=== PATIENT | male | born 1980 | race Caucasian/White ===

== ENCOUNTER 2024-10-30 08:31 | Emergency (ER) | payer MEDICAID, SELFPAY ==
[2024-10-30 08:32] VITALS: BMI 33.0
[2024-10-30 08:44] VITALS: BP 122/81; PULSE 86; RESP 19; TEMP 37.2; O2SAT 97
--- NOTE | 2024-10-30 08:53 | XR_ITS ---
Shoulder bilateral, 6 views Technique: Shoulder AP internal rotation, AP external rotation, Y view each shoulder total 6 views Exam date and time :October 30, 2024 0909 hours FINDINGS: Right shoulder demonstrates no fracture or dislocation IMPRESSION: Right shoulder examination no fracture or dislocation Examination: Shoulder,left, 3 views Technique: Shoulder AP internal rotation, AP external rotation, Y view shoulder, 3 views Exam date and time :October 30, 2024 0909 hrs. Indications: Patient fell today with into the left shoulder, right shoulder pain Findings: Probable overlap shadow distal clavicle Humerus scapula appear intact No shoulder dislocation Impression: No shoulder fracture or dislocation MTDD
--- NOTE | 2024-10-30 09:52 | EDNOTE_ITS ---
<Statement entered by Kenia Branch MD - 10/30/24 17:53> As co-signing physician, I was present and available for consult prn. I concur with the plan and care as documented by the midlevel provider. Upper Extremity Injury RME/HPI General Chief Complaint: Extremity Injury, Upper Stated Complaint: RIGHT SHOULDER INJURY YESTERDAY AT 1500 Time Seen by Provider: 10/30/24 08:32 Arrival date/time: 10/30/24 08:31 44-year-old male presents the emergency department stating that he hit his right elbow while skateboarding and a pain radiated to the right shoulder patient reports pain in the right shoulder Limitations: no limitations Related Data Previous Rx's ?Medication ?Instructions ?Recorded hydrocodone 5 mg-acetaminophen 325 1 tab PO BID PRN pain #10 tabs 07/29/24 mg tablet hydrocodone 5 mg-acetaminophen 325 1 tab PO BID PRN pain #10 tabs 07/29/24 mg tablet ibuprofen 800 mg tablet 800 mg PO TID PRN pain #30 tabs 07/29/24 buspirone 10 mg tablet 10 mg PO TID #90 tabs 08/26/24 fluoxetine 40 mg capsule 40 mg PO QAM #30 caps 08/26/24 ibuprofen 800 mg tablet 800 mg PO TID PRN pain #30 tabs 10/30/24 Allergies Allergy/AdvReac Type Severity Reaction Status Date / Time Penicillins Allergy Unknown Verified 10/30/24 08:34 Review of Systems Review of Systems Systems Reviewed: All systems reviewed, normal except as documented Constitutional Constitutional: Reports system reviewed and no additional complaints, except as documented, Denies fever(s) and Denies headache(s) Eyes Eyes: Reports system reviewed and no additional complaints, except as documented and Denies blurry vision ENT Ears, Nose, Mouth, and Throat: Reports system reviewed and no additional complaints, except as documented, Denies headache(s), Denies nasal congestion and Denies nasal discharge Cardiovascular Cardiovascular: Reports system reviewed and no additional complaints, except as documented, Denies chest pain and Denies dyspnea Respiratory Respiratory: Reports system reviewed and no additional complaints, except as documented, Denies chest congestion, Denies cough and Denies dyspnea Gastrointestinal Gastrointestinal: Reports system reviewed and no additional complaints, except as documented and Denies abdominal pain Musculoskeletal Musculoskeletal: Reports system reviewed and no additional complaints, except as documented, Reports arthralgias, Denies deformity, Denies joint swelling, Denies stiffness and Denies tingling Integumentary/Breasts Skin/Breast: Reports system reviewed and no additional complaints, except as documented and Denies rash Neurologic Neurologic: Reports system reviewed and no additional complaints, except as documented, Reports as per HPI, Denies headache(s) and Denies tingling Past Medical History Social History SMOKING STATUS: Current some day smoker ED Exam General Limitations: Present no limitations General appearance: Present alert and in no apparent distress Head Head exam: Present atraumatic Eye Eye exam: Present normal appearance, PERRL and EOMI ENT ENT exam: Present normal exam, normal oropharynx and mucous membranes moist Neck Neck exam: Present normal inspection, full ROM and trachea midline Chest Chest inspection: Present normal inspection and symmetric chest wall rise Respiratory Respiratory exam: Present normal lung sounds bilaterally Cardiovascular Cardiovascular exam: Present regular rate, normal rhythm and normal heart sounds Abdominal Exam Abdominal exam: Present soft and normal bowel sounds Extremities Exam Extremities exam: Present full ROM, tenderness and normal capillary refill; Absent joint swelling Back Exam Back exam: Present normal inspection and full ROM Neurological Exam Neurological exam: Present alert, oriented X3 and CN II-XII intact Psychiatric Psychiatric exam: Present normal affect and normal mood Skin Skin exam: Present warm, dry, intact and normal color Course Quality Measures none Orders Category Date Time Status XR shoulder BI 2V Stat Exams 10/30/24 09:35 Completed XR shoulder RT min 2V Stat Exams 10/30/24 08:53 Taken Vital Signs Vital signs: Vital Signs Temperature 99.0 F 10/30/24 08:44 Pulse Rate 86 10/30/24 08:44 Respiratory Rate 19 10/30/24 08:44 Blood Pressure 122/81 10/30/24 08:44 Pulse Oximetry (%) 97 10/30/24 08:44 Oxygen Delivery Method Room Air 10/30/24 08:44 O2 saturation 97% on room air within normal limits Extremity Injury MDM Narrative MDM Narrative:: 44-year-old male presents the emergency department stating that he hit his right elbow while skateboarding and a pain radiated to the right shoulder patient reports pain in the right shoulder X-ray of the right shoulder and elbow ordered Patient declined elbow x-ray X-ray of the shoulder does not show an acute fracture or dislocation Patient discharged home in no distress to follow-up with primary care doctor in the next 24 to 48 hours and for any worsening symptoms to return to the ER immediately Patient data External records reviewed:: [facility] previous records Clinical information provided by:: patient Social determinants that could affect healthcare access:: none Patient has the following chronic illnesses:: See history How is presenting disease/condition affected by chronic disease/condition?: uneffected by Evaluation data The following diagnostics were reviewed and interpreted by me:: radiology exam(s) Lab and/or radiology exams considered but not ordered:: Radiology obtain Interpretation Summary: Reviewed by me Medications / Prescriptions Medications or Prescriptions considered but not ordered:: Given Medication administrations:: Given Consultations Consultation(s) initiated? (list below): No Diagnosis Upper Extremity Injury Differential Diagnosis: other (Elbow sprain, elbow fracture, shoulder sprain, shoulder fracture) Most likely diagnosis given after review of the tests above:: Shoulder sprain Admission Indicated Admission indicated?: not indicated Admission Request Was there a request for admission?: No Disposition Plan Disposition Plan: Discharge Discharge Attestation Discharge Attestation: The patient and all family members were given an opportunity to ask questions and understood the discharge instructions. Discharge instructions specifically effects, indications for sooner follow up or return to the emergency department, and the expected course of current diagnosis. Patient condition: Stable Discharge Plan Plan Patient Disposition: HOME (Self Care) Disposition Comment: Stable Prescriptions/Referrals Prescriptions/Med Rec: New ibuprofen 800 mg tablet 800 mg PO TID PRN (Reason: pain) Qty: 30 0RF No Action hydrocodone-acetaminophen 5-325 mg tablet 1 tab PO BID MDD 2 tabs PRN (Reason: pain) Qty: 10 0RF ibuprofen 800 mg tablet 800 mg PO TID PRN (Reason: pain) Qty: 30 0RF hydrocodone-acetaminophen 5-325 mg tablet 1 tab PO BID MDD 10 PRN (Reason: pain) Qty: 10 0RF fluoxetine 40 mg capsule 40 mg PO QAM Qty: 30 1RF buspirone 10 mg tablet 10 mg PO TID Qty: 90 3RF Problem List Clinical Impression: Pain in right shoulder Patient/Caregiver Discharge Instructions Education Materials: ED Arthralgia Additional Instructions: Please follow up with your primary care doctor in the next 24-48hrs for any worsening symptoms return here immediately If your symptoms persist or worsen you may need an MRI for further evaluation Print Language: Yi Stand Alone Forms: [employer]., Patient Portal Info Letter PA/MACHINE COIL ASSEMBLER Supervising Physician PA/MACHINE COIL ASSEMBLER Supervising Physician: Dr. Branch
== END 2024-10-30 10:00 | disposition home or self-care (01) ==
LOC: SERX 10:47
PROVIDERS: Emergency Provider Emergency Medicine
DX: S49.91XA Unspecified injury of right shoulder and upper arm, initial encounter (principal); M25.512 Pain in left shoulder; Y93.51 Activity, roller skating (inline) and skateboarding
CPT/HCPCS: 73030; 99283

== ENCOUNTER 2024-12-07 18:36 | Emergency (ER) | payer MEDICAID, SELFPAY ==
[2024-12-07 18:38] VITALS: BP 118/79; PULSE 89; RESP 22; TEMP 36.3; O2SAT 99
--- NOTE | 2024-12-07 18:42 | XR_ITS ---
EXAMINATION: Ankle, right 3 views . Technique: Ankle AP, oblique, lateral 3 views Date and time of exam: December 17, 2024 1911 hrs. Indications: Patient fell today with injury to the ankle, ankle pain. Findings: Acute severely comminuted fracture distal tibial shaft, one shaft width offset of the main fracture fragments on the AP view Acute fracture distal fibular shaft, one shaft width offset with overriding No ankle dislocation Impression: Acute comminuted fractures distal tibia and distal fibular shaft
--- NOTE | 2024-12-07 18:42 | XR_ITS ---
Examination: Tibia-Fibula, right , 2 views Technique: Tibia-fibula AP lateral 2 views Date and time of exam: November 20248 hrs. Indications: Skateboarding accident to the lower leg today, lower leg pain. Findings: Acute comminuted fracture distal tibial shaft, on the AP view one shaft width lateral offset of the distal main fracture fragment Acute fracture distal fibular shaft, one shaft width offset and overriding Also fracture proximal fibular shaft and neck Impression: Fractures as above, including acute comminuted fracture distal tibial shaft with significant displacement
--- NOTE | 2024-12-07 18:43 | PD.EDADULT ---
ED General RME/HPI General Chief complaint: Ankle/Foot Injury Stated complaint: ANKLE FRACTURE Time Seen by Provider: 12/07/24 18:39 Arrival date/time: 12/07/24 18:36 RME / HPI RME / HPI narrative: 44-year-old male patient with significant history of diabetes mellitus, was brought in by EMS for evaluation regarding right ankle deformity. Patient fell off his skateboard, resulting into deformity to the right ankle, severity moderate. Patient denies any other injury. Denies any LOC denies any headache denies any neck pain chest pain or back pain. Patient was given fentanyl en route to the emergency room. Related Data Previous Rx's ?Medication ?Instructions ?Recorded hydrocodone 5 mg-acetaminophen 325 1 tab PO BID PRN pain #10 tabs 07/29/24 mg tablet hydrocodone 5 mg-acetaminophen 325 1 tab PO BID PRN pain #10 tabs 07/29/24 mg tablet ibuprofen 800 mg tablet 800 mg PO TID PRN pain #30 tabs 07/29/24 buspirone 10 mg tablet 10 mg PO TID #90 tabs 08/26/24 fluoxetine 40 mg capsule 40 mg PO QAM #30 caps 08/26/24 ibuprofen 800 mg tablet 800 mg PO TID PRN pain #30 tabs 10/30/24 acetaminophen 300 mg-codeine 30 mg 1 tab PO TID PRN pain #20 tabs 12/07/24 tablet ibuprofen 800 mg tablet 800 mg PO TID PRN pain #30 tabs 12/07/24 Allergies Allergy/AdvReac Type Severity Reaction Status Date / Time Penicillins Allergy Unknown Verified 12/07/24 19:33 Review of Systems Review of Systems Narrative Review of Systems: Review of system reviewed and within normal limits except mentioned in HPI ED Exam Narrative Physical exam: VITAL SIGNS: Reviewed. GENERAL APPEARANCE: Alert and interactive, follows commands, no acute distress, HEAD AND FACE: Non-traumatic. ENT: PERRL, pink conjunctivitis, eyelid no trauma, Mucous membrane moist. NECK: Supple, nontender, no nuchal rigidity. CHEST: No tenderness, no crepitus, no paradoxical movement, no retractions. LUNGS: Clear, well ventilated, symmetric, no rales, no wheezing, no ronchi, no stridor, good breath sounds bilaterally. HEART: Regular rate, regular rhythm, no murmur, no gallops. ABDOMEN: Soft, positive bowel sounds, nondistended, no guarding, nontender, no rebound, no masses, RECTAL: Deferred. GENITAL: Deferred. NEUROLOGICAL: Gross motor function intact sensory function intact, Appropriate for age. MUSCULOSKELETAL: low back nontender, full range of motion. EXTREMITIES: Right ankle tenderness, mild swelling, with crepitus, no skin breakdown noted, and limitation range of motion. Distal neurovascular status intact. SKIN: Color pink, dry, no rash, no lacerations, no abrasions, no contusions. LYMPHATICS: Deferred. Course Quality Measures none Orders Category Date Time Status Crutches .NOW Care 12/07/24 19:42 Active XR ankle comp RT min 3V Stat Exams 12/07/24 18:42 Taken XR tibia fibula RT 2V Stat Exams 12/07/24 18:42 Taken HYDROcodone/APAP 10/325 [[place] 10/325] Med 12/07/24 20:28 Discontinued 1 tab PO X1 ONE Morphine Inj Med 12/07/24 18:42 Discontinued 4 mg IVP X1 ONE Vital Signs Vital signs: Vital Signs Temperature 97.4 F 12/07/24 18:38 Pulse Rate 89 12/07/24 18:38 Respiratory Rate 22 H 12/07/24 18:38 Blood Pressure 118/79 12/07/24 18:38 Pulse Oximetry (%) 99 12/07/24 18:38 Oxygen Delivery Method Room Air 12/07/24 18:38 [facility] Patient data External records reviewed:: None Clinical information provided by:: patient Social determinants that could affect healthcare access:: none Patient has the following chronic illnesses:: Diabetes mellitus How is presenting disease/condition affected by chronic disease/condition?: uneffected by Evaluation data The following diagnostics were reviewed and interpreted by me:: radiology exam(s) Lab and/or radiology exams considered but not ordered:: None Interpretation Summary: X-ray of the right lower extremity showed comminuted fracture of the distal tibia and fibula and proximal fibula Medications Medications considered but not ordered:: None Medication administrations:: Medication Administration History Discontinued Medications Hydrocodone Bitart/Acetaminophen (Hydrocodone/[place] 10/325 Tab) 1 tab PO X1 ONE Stop: 12/07/24 20:29 Morphine Sulfate (Morphine Sulf Inj 10 Mg/Ml Vial) 4 mg IVP X1 ONE Stop: 12/07/24 18:43 Last Admin: 12/07/24 19:26 Dose: 4 mg Documented By: TAMI Morphine and [place] Consultations Consultation(s) initiated? (list below): Yes Consultation #1 (Physician, Specialty, Details): I consulted Dr. Rutledge, orthopedic surgeon on-call, and told me that patient can go home on a splint and follow-up in his clinic this coming Monday at 3 PM. Plan of care discussed with the patient and told him to follow-up with the clinic of orthopedic surgeon patient agrees with the plan. Diagnosis Differential Diagnosis ED Complaint MDM: Distal tibia-fibula fracture, ankle dislocation knee fracture Most likely diagnosis given after review of the tests above:: Close distal tibial fibular fracture right Admission Indicated Admission indicated?: not indicated Explain why admission is indicated or not indicated:: Stable Admission Request Was there a request for admission?: No Disposition Plan Disposition Plan: Discharge Discharge Attestation Discharge Attestation: The patient was given an opportunity to ask questions and understood the discharge instructions. Discharge instructions specifically effects, indications for sooner follow up or return to the emergency department, and the expected course of current diagnosis. Patient condition: Stable Medical Decision Making MDM Narrative MDM Narrative: 44-year-old male patient with significant history of diabetes mellitus, was brought in by EMS for evaluation regarding right ankle deformity. Patient fell off his skateboard, resulting into deformity to the right ankle, severity moderate. Patient denies any other injury. Denies any LOC denies any headache denies any neck pain chest pain or back pain. Patient was given fentanyl en route to the emergency room. Differential Diagnosis Differential Diagnosis: Distal tibia-fibula fracture, ankle dislocation knee fracture Discharge Plan Plan Patient Disposition: HOME (Self Care) Disposition Comment: stable Prescriptions/Referrals Prescriptions/Med Rec: New ibuprofen 800 mg tablet 800 mg PO TID PRN (Reason: pain) Qty: 30 0RF acetaminophen-codeine 300-30 mg tablet 1 tab PO TID PRN (Reason: pain) Qty: 20 0RF No Action hydrocodone-acetaminophen 5-325 mg tablet 1 tab PO BID MDD 2 tabs PRN (Reason: pain) Qty: 10 0RF ibuprofen 800 mg tablet 800 mg PO TID PRN (Reason: pain) Qty: 30 0RF hydrocodone-acetaminophen 5-325 mg tablet 1 tab PO BID MDD 10 PRN (Reason: pain) Qty: 10 0RF fluoxetine 40 mg capsule 40 mg PO QAM Qty: 30 1RF buspirone 10 mg tablet 10 mg PO TID Qty: 90 3RF ibuprofen 800 mg tablet 800 mg PO TID PRN (Reason: pain) Qty: 30 0RF Referrals: Brant Rose MD [Referring Provider] - In 1 week (Follow-up with orthopedic surgeon, Dr. Rutledge, this Monday, at 3 PM) Problem List Clinical Impression: Fracture of tibia and fibula Patient/Caregiver Discharge Instructions Discharge Activity: activity as tolerated Education Materials: ED Fracture, Lower Extremity Additional Instructions: Follow-up with orthopedic surgeon, Dr. Rutledge, in the clinic 3 PM this coming Monday Elevate your legs as needed None weightbearing the right lower extremity Do not remove your splint Take medication as prescribed Print Language: Sami Stand Alone Forms: Carmela Award Info., Patient Portal Info Letter PA/ROPE TIER Supervising Physician PA/ROPE TIER Supervising Physician: Md Mt
[2024-12-07] MEDS: MORPHINE SULF INJ 10 MG/ML VIAL 4 MG IVP (19:26)
[2024-12-07 19:34] VITALS: BMI 33.0
[2024-12-07 19:38] VITALS: BP 138/83; PULSE 100; RESP 20; TEMP 36.7; O2SAT 100
[2024-12-07] MEDS: HYDROcodone/APAP 10/325 TAB PO (20:40)
--- NOTE | 2024-12-07 20:45 | PC.NURSE ---
pt teaching done with pt on use fo crutches. demonstration and demonstration back. pt verbalizes understanding. pt educated on care of splint. educated on how to check for circulation and what to do if comprimized. Also spoke with pt about the importance of seeing primary and thus orthopedic surgeon YASMINE. pt vebalizes understanding.
== END 2024-12-07 21:04 | disposition home or self-care (01) ==
PROVIDERS: Emergency Provider Emergency Medicine
DX: S82.831A Other fracture of upper and lower end of right fibula, initial encounter for closed fracture (principal); S82.301A Unspecified fracture of lower end of right tibia, initial encounter for closed fracture; E11.9 Type 2 diabetes mellitus without complications; V00.131A Fall from skateboard, initial encounter; Y93.51 Activity, roller skating (inline) and skateboarding
CPT/HCPCS: 29515; 73590; 73610; 96374; 99284; J2270; A9270

== ENCOUNTER 2024-12-08 03:19 | Emergency (ER) | payer MEDICAID, SELFPAY ==
[2024-12-08 03:23] VITALS: BP 147/86; PULSE 105; RESP 18; TEMP 36.9; O2SAT 97
--- NOTE | 2024-12-08 03:28 | PD.EDADULT ---
ED General RME/HPI General Chief complaint: General Adult/Misc Complain Stated complaint: RIGHT LEG PAIN, RIGHT SHOULDER PAIN Time Seen by Provider: 12/08/24 03:28 Source: patient Arrival date/time: 12/08/24 03:19 Mode of arrival: ambulatory Limitations: no limitations RME / HPI RME / HPI narrative: Dr. Amor?s Main ED Evaluation: 44-year-old male who presents to the emergency department requesting pain medication and additional assistance related to what he describes as a personal crisis. He was just here today and treated for right proximal fibula fracture with outpatient followup on 12/09/[address] De Oliveira. He explains that his current situation is complicated including being unhoused and lacking reliable transportation, which have impacted his ability to access consistent medical care. The patient does not report any new or worsening medical complaints at this time. He denies symptoms such as fever, chills, shortness of breath, chest pain, nausea, vomiting, abdominal pain, or neurological changes. He also denies any acute trauma or injury. Related Data Previous Rx's ?Medication ?Instructions ?Recorded hydrocodone 5 mg-acetaminophen 325 1 tab PO BID PRN pain #10 tabs 07/29/24 mg tablet hydrocodone 5 mg-acetaminophen 325 1 tab PO BID PRN pain #10 tabs 07/29/24 mg tablet ibuprofen 800 mg tablet 800 mg PO TID PRN pain #30 tabs 07/29/24 buspirone 10 mg tablet 10 mg PO TID #90 tabs 08/26/24 fluoxetine 40 mg capsule 40 mg PO QAM #30 caps 08/26/24 ibuprofen 800 mg tablet 800 mg PO TID PRN pain #30 tabs 10/30/24 acetaminophen 300 mg-codeine 30 mg 1 tab PO TID PRN pain #20 tabs 12/07/24 tablet ibuprofen 800 mg tablet 800 mg PO TID PRN pain #30 tabs 12/07/24 Allergies Allergy/AdvReac Type Severity Reaction Status Date / Time Penicillins Allergy Unknown Verified 12/07/24 19:33 Review of Systems Review of Systems Systems Reviewed: All systems reviewed, normal except as documented Past Medical History Social History SMOKING STATUS: Current every day smoker ED Exam Narrative Physical exam: GENERAL APPEARANCE: alert and oriented x 4, well-developed, well-nourished, no acute distress VITALS: All vitals were reviewed and the pulse ox is 97% on room air, which is normal according to my interpretation. HEENT: normocephalic, atraumatic NECK: supple LUNGS: no respiratory distress, normal effort HEART: good peripheral perfusion ABDOMEN: non distended EXTREMITIES: atraumatic NEUROLOGIC: awake; alert and oriented x4; cranial nerves II-XII grossly intact. Distal NV status intact. Splint and michelle wrap applied to right lower leg. PSYCHIATRIC: appropriate mood and affect SKIN: warm, dry, normal color; no rashes General Limitations: Present no limitations Course Quality Measures none Vital Signs Vital signs: Vital Signs Temperature 98.5 F 12/08/24 03:23 Pulse Rate 105 H 12/08/24 03:23 Respiratory Rate 18 12/08/24 03:23 Blood Pressure 147/86 H 12/08/24 03:23 Pulse Oximetry (%) 97 12/08/24 03:23 Oxygen Delivery Method Room Air 12/08/24 03:23 [facility] Patient data External records reviewed:: [facility] previous records Clinical information provided by:: patient Social determinants that could affect healthcare access:: none Patient has the following chronic illnesses:: see PMH How is presenting disease/condition affected by chronic disease/condition?: uneffected by Evaluation data The following diagnostics were reviewed and interpreted by me:: EKG tracing(s) Lab and/or radiology exams considered but not ordered:: n/a Interpretation Summary: See radiology data before. Medications Medications considered but not ordered:: n/a Medication administrations:: n/a Consultations Consultation(s) initiated? (list below): No Diagnosis Differential Diagnosis ED Complaint MDM: Fracture pain, Dislocation, Contustion Most likely diagnosis given after review of the tests above:: Fracture of tibia and fibula Admission Indicated Admission indicated?: not indicated Explain why admission is indicated or not indicated:: No significant findings Admission Request Was there a request for admission?: No Disposition Plan Disposition Plan: Discharge Discharge Attestation Discharge Attestation: The patient and all family members were given an opportunity to ask questions and understood the discharge instructions. Discharge instructions specifically effects, indications for sooner follow up or return to the emergency department, and the expected course of current diagnosis. Patient condition: Stable Medical Decision Making MDM Narrative MDM Narrative: Scribe Attestation: I, Sydney Jennifer, am scribing for and in the presence of Dr. Amor. Provider Notation: Although this document has been carefully reviewed, there may still be some phonetic and other typographical errors. These errors are purely grammatical due to imperfections in the software program and should not be construed in any way to compromise the substance of the patient's medical care during this visit. Differential Diagnosis Differential Diagnosis: Fracture pain, Dislocation, Contustion Medical Records Medical records reviewed: Yes I reviewed the patient's medical records. Radiology Data Radiology results reviewed: Yes I reviewed the patient's radiology results. Radiology results narrative: Examination: Tibia-Fibula, right , 2 views Technique: Tibia-fibula AP lateral 2 views Date and time of exam: November [id number] hrs. Indications: Skateboarding accident to the lower leg today, lower leg pain. Findings: Acute comminuted fracture distal tibial shaft, on the AP view one shaft width lateral offset of the distal main fracture fragment Acute fracture distal fibular shaft, one shaft width offset and overriding Also fracture proximal fibular shaft and neck Impression: Fractures as above, including acute comminuted fracture distal tibial shaft with significant displacement Dictated By: Erasmo Hairston MD Discharge Plan Plan Patient Disposition: HOME (Self Care) Disposition Comment: Stable for discharge Patient condition on transfer: Stable Prescriptions/Referrals Prescriptions/Med Rec: No Action hydrocodone-acetaminophen 5-325 mg tablet 1 tab PO BID MDD 2 tabs PRN (Reason: pain) Qty: 10 0RF ibuprofen 800 mg tablet 800 mg PO TID PRN (Reason: pain) Qty: 30 0RF hydrocodone-acetaminophen 5-325 mg tablet 1 tab PO BID MDD 10 PRN (Reason: pain) Qty: 10 0RF fluoxetine 40 mg capsule 40 mg PO QAM Qty: 30 1RF buspirone 10 mg tablet 10 mg PO TID Qty: 90 3RF ibuprofen 800 mg tablet 800 mg PO TID PRN (Reason: pain) Qty: 30 0RF ibuprofen 800 mg tablet 800 mg PO TID PRN (Reason: pain) Qty: 30 0RF acetaminophen-codeine 300-30 mg tablet 1 tab PO TID PRN (Reason: pain) Qty: 20 0RF Problem List Clinical Impression: Fracture of tibia and fibula Patient/Caregiver Discharge Instructions Discharge Activity: activity as tolerated Education Materials: ED Fracture, Lower Extremity Additional Instructions: It is very important that you keep your appointment with Dr. De Oliveira on Monday at 3 PM. Please go to your pharmacy and fill the prescription for pain medicine that was written for you. If you have any worsening you can come back to the emergency department anytime and we will help Print Language: Citizen Of [place] Stand Alone Forms: Carmela Award Info., Patient Portal Info Letter
[2024-12-08] MEDS: MORPHINE SULF INJ 10 MG/ML VIAL 5 MG IM (03:51)
[2024-12-08 04:23] VITALS: RESP 18
== END 2024-12-08 04:33 | disposition home or self-care (01) ==
LOC: SERX 04:30
PROVIDERS: Emergency Provider Emergency Medicine
DX: S82.831A Other fracture of upper and lower end of right fibula, initial encounter for closed fracture (principal); Y93.51 Activity, roller skating (inline) and skateboarding; Z59.00 Homelessness unspecified
CPT/HCPCS: 96372; 99283; J2270

== ENCOUNTER 2024-12-08 07:22 | Emergency (ER) | payer MEDICAID, SELFPAY ==
[2024-12-08 07:24] VITALS: BMI 33.0
[2024-12-08 07:31] VITALS: BP 129/68; PULSE 85; RESP 18; TEMP 36.7; O2SAT 100
--- NOTE | 2024-12-08 07:40 | EDNOTE_ITS ---
<Statement entered by Kenia Branch MD - 12/19/24 19:26> As co-signing physician, I was present and available for consult prn. I concur with the plan and care as documented by the midlevel provider. Lower Extremity Injury RME/HPI General Chief Complaint: Ankle/Foot Injury Stated Complaint: NEEDS PAIN MED AND PLACE TO GO D/T FX ANKLE Time Seen by Provider: 12/08/24 07:29 Arrival date/time: 12/08/24 07:22 This is a 44-year-old male who presents to the emergency department requesting pain medication and additional assistance because he is homeless. Patient was offered a ride to the homeless correction but states he did not want to go there because they kicked everyone out at 8 AM in the morning. He he was just seen this morning for the same complaint and treated for right proximal fibula fracture with outpatient followup on 12/09/[address] De Oliveira. He explains that his current situation is complicated including being unhoused and lacking reliable transportation, which have impacted his ability to access consistent medical care. Patient states that he has nowhere to go. The patient does not report any new or worsening medical complaints at this time. He denies symptoms such as fever, chills, shortness of breath, chest pain, nausea, vomiting, abdominal pain, or neurological changes. He also denies any new acute trauma or injury. Related Data Home Medications ?Medication ?Instructions ?Recorded ?Confirmed atorvastatin 40 mg tablet 40 mg PO DAILY 12/13/2411/30 fenofibrate 54 mg tablet 54 mg PO DAILY 12/13/2411/30 hydrocodone 5 mg-acetaminophen 325 1 tab PO Q4H PRN pa in 12/13/24 12/13/24 mg tablet trazodone 50 mg tablet 50 mg PO .bedtime PRN insomn ia 12/13/24 12/13/24 Previous Rx's ?Medication ?Instructions ?Recorded buspirone 10 mg tablet 10 mg PO TID #90 tabs fluoxetine 40 mg capsule 40 mg PO QAM #30 caps ibuprofen 800 mg tablet 800 mg PO TID PRN pain #30 t abs 10/30/24 Allergies Allergy/AdvReac Type Severity Reaction Status Date / Time Penicillins Allergy Unknown Verified 12/13/24 07:56 Review of Systems Review of Systems Systems Reviewed: All systems reviewed, normal except as documented Past Medical History Social History SMOKING STATUS: Current every day smoker ED Exam Narrative Physical exam: GENERAL APPEARANCE: alert and oriented x 4, well-developed, well-nourished, no acute distress VITALS: All vitals were reviewed HEENT: normocephalic, atraumatic NECK: supple LUNGS: no respiratory distress, normal effort, breathing even and unlabored HEART: good peripheral perfusion ABDOMEN: non distended EXTREMITIES: atraumatic NEUROLOGIC: awake; alert and oriented x4; cranial nerves II-XII grossly intact. Distal NV status intact. Splint and michelle wrap applied to right lower leg. leg warm to touch, splint loosen for comfort, foot cap refill less than 2 seconds PSYCHIATRIC: appropriate mood and affect SKIN: warm, dry, normal color; no rashes Course Quality Measures none Orders Category Date Time Status Consult Coverstitch Elastic Attacher NOW Care 12/08/24 07:54 Completed HYDROcodone*/APAP 5/325 [Claridge 5/325] Med 12/08/24 07:53 Discontinued 2 tab PO X1 ONE Ketorolac Inj [Toradol Inj] Med 12/08/24 07:53 Discontinued 60 mg IM X1 ONE Metoclopramide Inj [Reglan Inj] Med 12/08/24 07:53 Discontinued 10 mg IM X1 ONE Ondansetron Odt [Zofran Odt] Med 12/08/24 07:56 Discontinued 4 mg PO X1 ONE Vital Signs Vital signs: Vital Signs Temperature 98.0 F 12/08/24 07:31 Pulse Rate 85 12/08/24 07:31 Respiratory Rate 18 12/08/24 07:31 Blood Pressure 129/68 12/08/24 07:31 Pulse Oximetry (%) 100 12/08/24 07:31 Oxygen Delivery Method Room Air 12/08/24 07:31 Extremity Injury, Lower MDM Narrative MDM Narrative:: Patient given Toradol and Claridge 2 tablets for pain. Patient given Reglan for nausea. Pain is improved. Patient calling someone to grain picker his prescriptions. Patient told to come back to the emergency room if symptoms change or worsen. Patient verbalizes that he will follow-up with Dr. Mijares in doctor's office. Patient comfortable with plan of care. Patient data External records reviewed:: [facility] previous records Clinical information provided by:: patient Social determinants that could affect healthcare access:: housing Patient has the following chronic illnesses:: see hpi How is presenting disease/condition affected by chronic disease/condition?: no chronic disease Evaluation data The following diagnostics were reviewed and interpreted by me:: other (specify) (previous diagnosed with fracture ) Lab and/or radiology exams considered but not ordered:: none Interpretation Summary: n/a Medications / Prescriptions Medications or Prescriptions considered but not ordered:: none Medication administrations:: Medication Administration History Discontinued Medications Hydrocodone Bitart/Acetaminophen (Hydrocodone/Apap 5/325 Tablet) 2 tab PO X1 ONE Stop: 12/08/24 07:54 Last Admin: 12/08/24 08:01 Dose: 2 tab Documented By: Ketorolac Tromethamine (Ketorolac Inj 60 Mg/2 Ml Vial) 60 mg IM X1 ONE Stop: 12/08/24 07:54 Last Admin: 12/08/24 08:02 Dose: 60 mg Documented By: Metoclopramide HCl (Metoclopramide Inj 5 Mg/Ml Vial 2 Ml) 10 mg IM X1 ONE; Protocol Stop: 12/08/24 07:54 Last Admin: 12/08/24 07:58 Dose: Not Given Documented By: Non-Admin Reason: Cancelled by Provider Ondansetron HCl (Ondansetron Odt 4 Mg Tabrap) 4 mg PO X1 ONE; Protocol Stop: 12/08/24 07:57 Last Admin: 12/08/24 08:01 Dose: 4 mg Documented By: see note Consultations Consultation(s) initiated? (list below): No Diagnosis Most likely diagnosis given after review of the tests above:: fracture tibia and fibula Admission Indicated Admission indicated?: not indicated Admission Request Was there a request for admission?: No Disposition Plan Disposition Plan: Discharge Discharge Attestation Discharge Attestation: The patient and all family members were given an opportunity to ask questions and understood the discharge instructions. Discharge instructions specifically effects, indications for sooner follow up or return to the emergency department, and the expected course of current diagnosis. Patient condition: Stable Discharge Plan Plan Patient Disposition: HOME (Self Care) Patient condition on transfer: Stable Prescriptions/Referrals Prescriptions/Med Rec: No Action fluoxetine 40 mg capsule 40 mg PO QAM Qty: 30 1RF buspirone 10 mg tablet 10 mg PO TID Qty: 90 3RF ibuprofen 800 mg tablet 800 mg PO TID PRN (Reason: pain) Qty: 30 0RF hydrocodone-acetaminophen 5-325 mg tablet 1 tab PO Q4H PRN (Reason: pain) trazodone 50 mg tablet 50 mg PO .bedtime PRN (Reason: insomnia) fenofibrate 54 mg tablet 54 mg PO DAILY Patient Comments: TAKE 1 TABLET BY MOUTH EVERY DAY WITH FOOD FOR 30 DAYS atorvastatin 40 mg tablet 40 mg PO DAILY Patient Comments: TAKE 1 TABLET BY MOUTH EVERY DAY Problem List Clinical Impression: Fracture of tibia and fibula Patient/Caregiver Discharge Instructions Discharge Activity: activity as tolerated Education Materials: ED Fracture, Lower Extremity, ED RICE Additional Instructions: It is very important that you keep your appointment with Dr. De Oliveira on 12/09/24 at 3 PM. Please go to your pharmacy and fill the prescription for pain medicine that was written for you previously. If symptoms change or worsen you can come back to the emergency department. Print Language: Nigerien Stand Alone Forms: Carmela Award Info., Patient Portal Info Letter PA/INSPECTOR AIR CARRIER Supervising Physician ABBEY/INSPECTOR AIR CARRIER Supervising Physician: chris
[2024-12-08] MEDS: ONDANSETRON ODT 4 MG TABRAP PO (08:01)
[2024-12-08] MEDS: HYDROcodone/APAP 5/325 TABLET 2 TAB PO (08:01)
[2024-12-08] MEDS: KETOROLAC INJ 60 MG/2 ML VIAL IM (08:02)
--- NOTE | 2024-12-08 08:30 | PC.NURSE ---
PT IN LOBBY WAITING FOR TRAFFIC WAREHOUSE SUPERVISOR. PT YELLING AND HYPERVENTILATING AND C/O PAIN WILL TALK WITH PROVIDER
--- NOTE | 2024-12-08 08:45 | PC.NURSE ---
GIVEN WATER PER REQUEST
--- NOTE | 2024-12-08 09:14 | PC.NURSE ---
COMPOSITION WEATHERBOARD APPLIER CAME TO LOBBY TO TALK WITH PT
--- NOTE | 2024-12-08 09:27 | PC.CC ---
Zo MEJIAS was consulted by coordinator mining products Sara for patient that is in need of Ship Self Defense System Mk1 Operator. Zo MEJIAS made [id number] contact with patient. ASW introduced self, role, and reason for visit. Patient appeared alert and oriented to self, location, and situation.?Patient reports he has no where to go and is [facility] but does not have confirmation that he has a bed and is waiting for a call back from them. Patient provided consent for ASW to make contact with his ex- Erika Coleman . ASW made telephone contact with the patient's ex- who reports she will be making contact with patient's sister who is in [place]. She requested that ASW inform patient to connect his phone to make contact with him as she is going to try and put him in a hotel/motel with the assistance of his sister. Erika requested patient be provided with bus passes as she will only be able to transport patient to motel is a room is booked for him. ASW made contact with the patient and provided update information from his ex- Erika. ASW provided update to charger operator helper Sara.
--- NOTE | 2024-12-08 10:35 | PC.NURSE ---
PT NOW HAS MALE VISITOR THAT CAME TO TRIAGE DESK TO SAY I'VE BEEN TALKING TO HIS MARINE EXTENSION AGENT ABOUT A SENIOR CARE. INFORMED VISITOR THAT NURSE WILL CALL SCHOOL AGE PROGRAM TEACHER TO COME TALK WITH HIM.
--- NOTE | 2024-12-08 11:02 | PC.CC ---
ASW, was contatced by manager quality systems Sara regarding patient wanting to speak to social work therapist regarding SNF placement. ASW informed patient that this is currently not an option as ASW cannot just check patient in at a SNF and there is a process. Patient stated he is waiting for his ex- to make contact with him after yazdanism. ASW once again reminded patient that there are not hotel/motel vouchers available. Patient stated he understood and is just waiting for the text. ASW to remain available.
--- NOTE | 2024-12-08 12:17 | PC.NURSE ---
SEEN GETTING INTO A CAR AND LEAVING
== END 2024-12-08 12:18 | disposition home or self-care (01) ==
LOC: SERX 08:19
PROVIDERS: Emergency Provider Emergency Medicine; PCP Family Medicine
DX: S82.831A Other fracture of upper and lower end of right fibula, initial encounter for closed fracture (principal); X58.XXXA Exposure to other specified factors, initial encounter; Z59.00 Homelessness unspecified
CPT/HCPCS: 96372; 99283; J1885; Q0162; A9270

== ENCOUNTER 2024-12-09 09:26 | Emergency (ER) | payer MEDICAID, SELFPAY ==
[2024-12-09 09:32] VITALS: BP 129/77; PULSE 85; RESP 16; TEMP 36.4; O2SAT 97; BMI 32.1
--- NOTE | 2024-12-09 10:20 | PC.NURSE ---
PATIENT CAME IN VIA EMS FOR WHAT HE INITIALLY SAID DEPRESSION SI. APON ARRIVAL PT STATES HE HAS AN APPOINTMENT TODAY WITH DR. KASPER AT 3PM BUT WHEN HE CALLED HIS RIDE THIS AM THE PERSON DIDN'T SALES REPRESENTATIVE ELECTRIC SERVICE SO PT THOUGHT THEY HAD BLOCKED HIM. PT STATED HE DOES NOT HAVE A RIDE SO HE FELT THAT IF HE CALLED 911 AND SAID HE WAS SI WE WILL HELP HIM. WHEN PT WAS SEEN YESTERDAY HE WAS GIVEN 2 BUS VOUCHERS AND ARRANGEMENTS WERE MADE FOR HIM TO STAY IN A HOTEL FOR THE NIGHT. PT DENIES SI BUT STATES HE DOES WANT MENTAL HEALTH SERVICES BUT TODAY HE JUST WANTS HELP WITH HIS LEG. CONSUMER INSIGHT MANAGER AWARE.
--- NOTE | 2024-12-09 11:24 | EDNOTE_ITS ---
Lower Extremity Injury RME/HPI General Chief Complaint: Depression Stated Complaint: NEEDS RIDE TO ORTHO [facility] AT 3 AND MH Time Seen by Provider: 12/09/24 11:23 Arrival date/time: 12/09/24 09:26 44-year-old male with psychiatric history presents to the emergency department today via EMS stating he is essentially for a ride to his Ortho appointment here in town at 3:00. Patient reports no acute medical complaints other than mild pain to his right foot which she is going to an Ortho appointment for today for a fracture Limitations: no limitations Related Data Home Medications ?Medication ?Instructions ?Recorded ?Confirmed atorvastatin 40 mg tablet 40 mg PO DAILY 12/13/2411/30 fenofibrate 54 mg tablet 54 mg PO DAILY 12/13/2411/30 hydrocodone 5 mg-acetaminophen 325 1 tab PO Q4H PRN pa in 12/13/24 12/13/24 mg tablet trazodone 50 mg tablet 50 mg PO .bedtime PRN insomn ia 12/13/24 12/13/24 Previous Rx's ?Medication ?Instructions ?Recorded buspirone 10 mg tablet 10 mg PO TID #90 tabs fluoxetine 40 mg capsule 40 mg PO QAM #30 caps ibuprofen 800 mg tablet 800 mg PO TID PRN pain #30 t abs 10/30/24 Allergies Allergy/AdvReac Type Severity Reaction Status Date / Time Penicillins Allergy Unknown Verified 12/13/24 07:56 Review of Systems Review of Systems Systems Reviewed: All systems reviewed, normal except as documented Constitutional Constitutional: Reports system reviewed and no additional complaints, except as documented, Denies fever(s) and Denies headache(s) Eyes Eyes: Reports system reviewed and no additional complaints, except as documented and Denies blurry vision ENT Ears, Nose, Mouth, and Throat: Reports system reviewed and no additional complaints, except as documented, Denies headache(s), Denies nasal congestion and Denies nasal discharge Cardiovascular Cardiovascular: Reports system reviewed and no additional complaints, except as documented, Denies chest pain and Denies dyspnea Respiratory Respiratory: Reports system reviewed and no additional complaints, except as documented, Denies chest congestion, Denies cough and Denies dyspnea Gastrointestinal Gastrointestinal: Reports system reviewed and no additional complaints, except as documented and Denies abdominal pain Musculoskeletal Musculoskeletal: Reports system reviewed and no additional complaints, except as documented, Reports abnormal gait, Reports arthralgias, Denies deformity and Reports other (Back pain) Integumentary/Breasts Skin/Breast: Reports system reviewed and no additional complaints, except as documented and Denies rash Neurologic Neurologic: Reports system reviewed and no additional complaints, except as documented, Reports as per HPI, Reports abnormal gait and Denies headache(s) Psychiatric Psychiatric: Reports system reviewed and no additional complaints, except as documented, Denies homicidal ideation and Denies suicidal ideation Past Medical History Past Medical History NEUROLOGIC: Positive Migraine; Negative Neurological Disorders or Seizures CARDIAC: Positive Cardiac Disorders and Hypertension (NOT TAKING MEDS AT THIS TIME); Negative Hypercholesterolemia or Congestive Heart Failure RESPIRATORY: Negative Chronic Obstructive Pulmonary Disease (COPD) GASTROINTESTINAL: Negative Gastrointestinal Disorders or Hepatitis GENITOURINARY: Negative Genitourinary Disorders or Renal Disease MUSCULOSKELETAL: Positive Musculoskeletal Disorders (PAIN TO RIGHT UPPER ARM- BRUISED) and Fractures (RIGHT TIBIA FIBULA) ENDOCRINE: Positive Endocrine Disorders and Diabetes Mellitus Type 2 (PREDIABETES- NO MEDS AT THIS TIME); Negative Diabetes Mellitus Type 1 HEMATOLOGIC: Negative Blood Disorders or Anemia PSYCHO/SOCIAL: Positive Depression and Anxiety OTHER HISTORY: Positive Falls (12/08/24), Chicken Pox, Measles and Mumps; Negative Blood Transfusions, Anesthesia Reactions or Cancer Surgical History SURGICAL: Negative Cardiac Surgery, Endocrine Surgery, Ear Surgery, Abdominal Surgery, Nephrectomy or Neurologic Surgery Social History SMOKING STATUS: Light (< 1 pack/day) ED Exam General Limitations: Present no limitations General appearance: Present alert and in no apparent distress Head Head exam: Present atraumatic, normocephalic and normal inspection Eye Eye exam: Present normal appearance, PERRL and EOMI; Absent conjunctival injection ENT ENT exam: Present normal exam, normal oropharynx and mucous membranes moist Neck Neck exam: Present normal inspection, full ROM and trachea midline Chest Chest inspection: Present normal inspection and symmetric chest wall rise Respiratory Respiratory exam: Present normal lung sounds bilaterally Cardiovascular Cardiovascular exam: Present regular rate, normal rhythm and normal heart sounds Abdominal Exam Abdominal exam: Present soft and normal bowel sounds Extremities Exam Extremities exam: Present normal inspection, full ROM, tenderness, normal capillary refill and joint swelling; Absent pedal edema or calf tenderness Back Exam Back exam: Present normal inspection and full ROM Neurological Exam Neurological exam: Present alert, oriented X3, CN II-XII intact, normal gait and reflexes normal; Absent motor sensory deficit Psychiatric Psychiatric exam: Present normal affect and normal mood Skin Skin exam: Present warm, dry, intact and normal color Course Quality Measures none Orders Category Date Time Status Crutches .NOW Care 12/09/24 11:38 Completed Ibuprofen Tab [Motrin Tab] Med 12/09/24 11:34 Discontinued 800 mg PO X1 ONE Vital Signs Vital signs: Vital Signs Temperature 97.6 F 12/09/24 09:32 Pulse Rate 85 12/09/24 09:32 Respiratory Rate 16 12/09/24 09:32 Blood Pressure 129/77 12/09/24 09:32 Pulse Oximetry (%) 97 12/09/24 09:32 Oxygen Delivery Method Room Air 12/09/24 09:32 O2 saturation 97% room air within normal limits Extremity Injury, Lower MDM Narrative MDM Narrative:: 44-year-old male with psychiatric history presents to the emergency department today via EMS stating he is essentially for a ride to his Ortho appointment here in town at 3:00. Patient reports no acute medical complaints other than mild pain to his right foot which she is going to an Ortho appointment for today for a fracture On exam patient reports no acute psychiatric emergency patient reports no suicidal or homicidal ideation Spoke with clinical social work therapist was able to get the patient a ride to his appointment today Patient was given a dose of pain medication here Patient discharged home in no distress to follow-up with primary care doctor in the next 24 to 48 hours and for any worsening symptoms to return to the ER immediately Patient data External records reviewed:: [facility] previous records Clinical information provided by:: patient Social determinants that could affect healthcare access:: mental health Patient has the following chronic illnesses:: Mental health, fracture of leg How is presenting disease/condition affected by chronic disease/condition?: caused by Evaluation data The following diagnostics were reviewed and interpreted by me:: other (specify) (N/A) Lab and/or radiology exams considered but not ordered:: Consider not ordered Interpretation Summary: N/A Medications / Prescriptions Medications or Prescriptions considered but not ordered:: Given Medication administrations:: Medication Administration History Discontinued Medications Ibuprofen (Ibuprofen Tab 400 Mg Tablet) 800 mg PO X1 ONE Stop: 12/09/24 11:35 Last Admin: 12/09/24 11:41 Dose: 800 mg Documented By: DB Given Consultations Consultation(s) initiated? (list below): No Diagnosis Extremity Injury, Lower Differential Diagnosis: other (Foot fracture, foot sprain, tibia fracture) Most likely diagnosis given after review of the tests above:: Fracture leg Admission Indicated Admission indicated?: not indicated Admission Request Was there a request for admission?: No Disposition Plan Disposition Plan: Discharge Discharge Attestation Discharge Attestation: The patient and all family members were given an opportunity to ask questions and understood the discharge instructions. Discharge instructions specifically effects, indications for sooner follow up or return to the emergency department, and the expected course of current diagnosis. Patient condition: Stable Discharge Plan Plan Patient Disposition: HOME (Self Care) Disposition Comment: Stable Prescriptions/Referrals Prescriptions/Med Rec: No Action fluoxetine 40 mg capsule 40 mg PO QAM Qty: 30 1RF buspirone 10 mg tablet 10 mg PO TID Qty: 90 3RF ibuprofen 800 mg tablet 800 mg PO TID PRN (Reason: pain) Qty: 30 0RF hydrocodone-acetaminophen 5-325 mg tablet 1 tab PO Q4H PRN (Reason: pain) trazodone 50 mg tablet 50 mg PO .bedtime PRN (Reason: insomnia) fenofibrate 54 mg tablet 54 mg PO DAILY Patient Comments: TAKE 1 TABLET BY MOUTH EVERY DAY WITH FOOD FOR 30 DAYS atorvastatin 40 mg tablet 40 mg PO DAILY Patient Comments: TAKE 1 TABLET BY MOUTH EVERY DAY Referrals: Santosh Pearson MD [Primary Care Provider] - 12/10/24 Problem List Clinical Impression: Ankle fracture, right, Homeless Patient/Caregiver Discharge Instructions Education Materials: [facility] [employer] [facility] Additional Instructions: Please keep your appointment with your orthopedist today at 3 PM for worsening symptoms return immediately Print Language: Telugu Stand Alone Forms: Carmela Award Info., Patient Portal Info Letter PA/BUSINESS INITIATIVES MANAGER Supervising Physician PA/BUSINESS INITIATIVES MANAGER Supervising Physician: Dr. rosen
[2024-12-09] MEDS: IBUPROFEN TAB 400 MG TABLET 800 MG PO (11:41)
--- NOTE | 2024-12-09 11:54 | PC.NURSE ---
DISCOVERED THAT PT THREW DISCHARGE PAPERWORK IN THE TRASH. REMOVED FROM TRASH AND PUT IN SHREDDER BOX
--- NOTE | 2024-12-09 12:00 | PC.SS ---
Chart accessed post-discharge due to patient was needing transportation services. Research Biologist informed by LESIA Chapa patient is needing transportation. Research Biologist connected with patient and was informed by patient he has depression. Patient denied having active SI, plan, method or intent. He denied self-harm. He reports being medication compliant. Patient stated he is connected with [facility] for medication and treatment services. [employer] transportation arranged for patient. Community Resources document provided to patient. Patient encouraged to return if experiencing emergency.
== END 2024-12-09 11:56 | disposition home or self-care (01) ==
PROVIDERS: Emergency Provider Emergency Medicine; PCP Family Medicine
DX: S82.891A Other fracture of right lower leg, initial encounter for closed fracture (principal); F17.210 Nicotine dependence, cigarettes, uncomplicated; Z59.00 Homelessness unspecified; Z59.82 Transportation insecurity; X58.XXXA Exposure to other specified factors, initial encounter
CPT/HCPCS: 96127; 99282; A9270

== ENCOUNTER 2024-12-13 15:40 | Inpatient (IN) | payer MEDICAID, SELFPAY ==
--- NOTE | 2024-12-12 12:05 | EKG_ITS ---
[facility] Test Date: 2024-12-12 Pat Name: ISIS HOFFMAN Department: Room: - Gender: Male Machine Set Up Operator: FRANNIE : 1980 Requested By: Brant Chacko Order Number: [id number] Reading MD: Brant Chacko Measurements Intervals [place] Rate: 98 P: 30 ME: 138 QRS: 30 QRSD: 120 T: 46 QT: 355 QTc: 453 Interpretive Statements SINUS RHYTHM POSSIBLE RIGHT VENTRICULAR CONDUCTION DELAY NONSPECIFIC T-WAVE ABNORMALITY No previous ECG available for comparison /store/S0/[id number]/ecg/[id number].pdf
[2024-12-12 12:17] VITALS: BMI 33.0
[2024-12-12 13:00] LABS: Basophils % (Auto) 0 % (0-2.5); Eosinophils # (Auto) 0.1 Thou/mm3 (0.0-0.5); Eosinophils % (Auto) 1 % (0-10); Hemoglobin 14.6 g/dL (13.5-16.0); Immature Granulocytes % (Auto) 0 % (0-0); Immature Granulocytes Auto 0.02 Thou/mm3 (0.00-0.00); Lymphocytes # (Auto) 1.9 Thou/mm3 (1.0-4.8); Lymphocytes % (Auto) 23 % (10-50); Mean Corpuscular HGB Conc 34.8 g/dl (31.0-37.0); Mean Corpuscular Hemoglobin 30.6 pg (25.0-35.0); Mean Corpuscular Volume 88 fL (80-100); Monocytes # (Auto) 0.5 Thou/mm3 (0.0-0.8); Monocytes % (Auto) 7 % (0-12); Neutrophils # (Auto) 5.8 Thou/mm3 (1.8-7.7); Neutrophils % (Auto) 69 % (37-80); Nucleated Red Blood Cell % 0 /100 WBC (0); Platelet Count 393 Thou/mm3 (140-440); RDW Standard Deviation 40.5 fL (35.1-43.9); Red Blood Count 4.77 Miln/mm3 (4.50-5.90); White Blood Count 8.3 Thou/mm3 (3.8-10.6)
[2024-12-12 13:19] LABS: Partial Thromboplastin Time 27.3 Seconds (22.0-36.0); Prothrombin Time 11.4 Seconds (9.0-12.2)
[2024-12-12 13:20] LABS: Alanine Aminotransferase 20 U/L (10-49); Albumin/Globulin Ratio 1.4 (1.2-2.2); Alkaline Phosphatase 79 U/L (46-116); Anion Gap 8 (7-16); Aspartate Amino Transferase 20 U/L (0-34); BUN/Creatinine Ratio 15 Ratio (12-20); Blood Urea Nitrogen 12 mg/dL (9-23); Calcium 9.4 mg/dL (8.3-10.6); Calcium (Corrected) 9.4 mg/dL (8.5-10.1); Chloride 106 mMol/L (98-107); Creatinine (Component) 0.8 mg/dL (0.6-1.3); Estimated Creatinine Clearance 155.5 mL/min (>60); Globulin 2.8 gm/dL (2.3-3.5); Glucose 104 mg/dL (74-106); Osmolality,Calculated 279 (275-295); Potassium 3.9 mMol/L (3.4-5.1); Sodium 140 mMol/L (136-145); Total Protein 6.8 gm/dL (5.7-8.2); eGFR > 60 See Note
[2024-12-13] VITALS (26 sets, daily range): BP systolic 118–153; BP diastolic 68–98; PULSE 73–97; RESP 14–20; TEMP 36.3–36.9; O2SAT 95–100; BMI 33.0
--- NOTE | 2024-12-13 07:32 | CHAP ---
Patient expressed gratitude for prayer before their procedure.
[2024-12-13] MEDS: RINGERS LACTATED 1000 ML 1,000 ML 20 ML IV (08:27)
--- NOTE | 2024-12-13 09:59 | XR_ITS ---
Examination: Right tibia-fibula 4 views Fluoroscopy Exam date and time: December 13, 2024 1245 hours INDICATIONS: Acute comminuted fractures distal tibial shaft on examination November 2024, postop reduction internal fixation fractures today TECHNIQUE AND FINDINGS: Operative reduction internal fixation fractures distal tibial shaft Satisfactory alignment Orthopedic hardware satisfactory position Comminuted fractures distal fibular shaft with satisfactory alignment Fluoroscopy 29 seconds radiation dose 0.90 milligray IMPRESSION: Operative reduction internal fixation fractures distal tibial shaft with satisfactory alignment
--- NOTE | 2024-12-13 11:09 | SUR.OPER ---
During preop interview, patient noted to have large bruise to his right upper arm/shoulder. Patient stated it is from fall on Monday.
--- NOTE | 2024-12-13 11:18 | PC.SS ---
SS was contacted by Ze from PT that that patient was needing a Rollator Walker, SS sent DME request through [facility] [employer].
--- NOTE | 2024-12-13 12:03 | SUR.PHASEI ---
1203 Patient arrived to recovery resting comfortably in bed, on oxygen 8L via oxy mask with an oral airway in place, breathing unlabored, vital signs stable, dressing intact to right lower extremity; adaptic soaked in betadine, fluffs, abd, orthoglass splint, bias roll, silk tape, no bleeding noted, patient has good circulation to right lower extremity; skin warm to touch, capillary refil is one second to right toes and skin color normal for patient, lung sounds clear upon auscultation, report received from Dr. Muñoz and Bill GRAF
--- NOTE | 2024-12-13 12:25 | PD.SUROPNT ---
Date of Procedure 12/13/24 Pre Op Diagnosis Displaced angulated comminuted fracture of the right distal tibia Displaced fracture of the right distal fibula Post Op Diagnosis Same Procedure 1. Open reduction internal fixation of right distal tibia with 8 hole interlocking distal medial tibial plate Synthes implant 2. Closed treatment of the distal fibular fracture Findings Displaced angulated comminuted fracture of the right distal tibia Displaced angulated fracture of the right distal fibula Procedure Description Patient was given general endotracheal anesthesia. Block was also given. Once satisfactory anesthesia achieved a tourniquet was placed on right upper thigh. Following that the part was thoroughly prepped and draped. After using Esmarch the tourniquet pressure was raised to 350 mmHg Patient was also given intravenous antibiotics. The fracture was checked under C arm and both AP and lateral projection Skin incision was made from the tip of medial malleolus extending proximally in an oblique fashion in convex way towards the crest of the tibia. The length of the incision was about 8 to 10 inches long. Deeper dissection carried out. The saphenous vein was isolated and protected all along. With the help of periosteal elevator the soft tissue was then reflected. With the help of curette and [place] the soft tissue invaginated between the fracture fragment was removed. Following that wound was irrigated with antibiotic solution every 4 to 5 minutes The fracture was reduced and a 8 hole distal interlocking plate was mounted over the medial aspect. Once it was satisfactory placed and position was checked under C arm then 1 cortical screw was placed proximally. Another cortical screw was placed distally as well. Following that 1 more at cortical screw was placed distally and 1 more cortical screw was placed proximally. Following that for interlocking placed was placed distally and 3 more cortical screw was placed proximally. At the fracture site the bone graft was placed. Wound was irrigated with antibiotic solution every 4 to 5 minutes before placing the bone graft Patient was repeatedly checked under C arm in both AP and lateral and anatomical reduction was achieved Closure was done with the help of 2-0 Vicryl in an interrupted fashion. The skin was closed with ehsan To cleaning the wound with hydrogen peroxide solution a sterile dressing was applied. Short leg splint was applied and tourniquet pressure was released Patient tolerated procedure very well. Estimated blood loss 10 mL Further management. Patient is homeless. Therefore patient is being kept here as an observation. The clinical social work therapist will work on it. Patient will be kept under hospitalist for pain control. Patient is quite well-built person and needs well-controlled pain medication Anesthesia GETA and other Pathology / specimen None Estimated Blood Loss 10 Surgeon Brant Rutledge MD Surgical Staff Operation Date: 12/13/24 10:00 Case Staff Anesthesiologist: Jamil Muñoz RN First Assistant: Gin Ferrera
[2024-12-13] MEDS: HYDROmorphone INJ 2 MG/ML VIAL 0.4 MG IV ×2 (12:32→13:01)
[2024-12-13] MEDS: ACETAMINOPHEN IVPB 1,000 MG/100 ML VIAL 250 MG IV (12:33)
[2024-12-13] MEDS: CYCLObenzaPRINE 5 MG TABLET 10 MG PO (12:40)
[2024-12-13] MEDS: oxyCODONE HCL 5 MG IR TAB 10 MG PO (12:45)
--- NOTE | 2024-12-13 13:00 | SUR.PHASEI ---
1300 patient eating lunch tray tolerating well
--- NOTE | 2024-12-13 13:15 | SUR.PHASEII ---
1315 report given to Cherise Liao RN
--- NOTE | 2024-12-13 13:53 | SUR.PHASEII ---
1353 Report received from Cherise Liao RN
--- NOTE | 2024-12-13 13:53 | SUR.PHASEII ---
1315: Pt awake, alert, sitting up in bed eating and drinking without difficulty swallowing or n/v, breathing unlabored, dressing to right lower extremity clean, dry, and intact, circulation to toes bilaterally WNL, report from Cherise Stewart RN 1353: Report to Cherise Stewart RN
--- NOTE | 2024-12-13 14:01 | ESHP_ITS ---
RE: ISIS HOFFMAN : 1980 DATE OF ADMISSION: 12/13/2024 HISTORY OF PRESENT ILLNESS: The patient came to my office on 12/12/2024 for detailed preoperative history and physical examination. As per the patient, he was doing roller skating on around 12/07/2024 when he fell down injuring his right tibia and fibula. The patient was brought to the emergency room. X-ray was obtained, which revealed angulated and comminuted displaced fracture of the right distal tibia and fibula. The patient was given a splint and was sent to me. The patient was seen by me on 12/09/2024. Surgical fixation was advised. Detailed discussion took place. Risks and benefits were explained. The patient was advised that we have to get it approval from his insurance company. PAST MEDICAL HISTORY: The patient is a prediabetic. There is no history of high blood pressure, asthma, seizures, chest pain. PAST SURGICAL HISTORY: Nil. FAMILY HISTORY AND SOCIAL HISTORY: The patient admits to smoking. The patient is single. The patient denies taking any illicit drugs. PHYSICAL EXAMINATION: GENERAL: Rather overbuilt person. VITAL SIGNS: Pulse 88 per minute. Blood pressure 136/84. NECK: Soft, supple. No masses felt. Trachea is centrally placed. CARDIOVASCULAR: First and second heart sounds normal. No murmur heard. RESPIRATORY SYSTEM: Bilateral vesicular breath sounds. CHEST: Clear. ABDOMEN: Soft. No masses felt. Bowel sounds present. EXTREMITIES: Right leg examination reveals swelling. There is mild deformity. Active range of motion was not possible to do. Neurovascularly, it was intact. ASSESSMENT AND PLAN: The patient was explained that it needs to be fixed. Plate and screws will be put on. The risks with surgery includes, but not limited to reaction to anesthetic agents, cardiac arrest or rarely it might be fatal. Risks with operational includes infection and if that happens, the patient may need further surgical procedure. Other risks include delayed healing, wound dehiscence, etc. There is a risk of developed deep venous thrombosis, which really might be fatal. Since the fracture is at the distal tibia, there is a risk of delayed union or nonunion. Possibility of bone graft was also discussed and the patient is fully okay with that. At this point, the patient stated that he is homeless. When the patient came to my office on 12/12/2024, the patient was accompanied by an elderly lady, which I assume is his mother. They explained that they are homeless, but they will figure it out about the staying after the operative procedure. Detailed discussion took place. After explaining risks, benefits, limitations of realistic outcome, the patients and the family want to proceed with surgery. Surgery is booked for 12/13/2024. Appropriate lab work is done. DT: 12:48:54 TT: 14:00:00 Ref: [id number] - TID: [id number]
--- NOTE | 2024-12-13 14:50 | SUR.PHASEII ---
1792 Dr. De Oliveira at bedside with patient, fixing patient dressing as patient complaining dressing is hurting his toes, dressing fixed by MD and patient is no longer complaining of his toes hurting
--- NOTE | 2024-12-13 15:00 | SUR.PHASEII ---
1500 patients mother at bedside with patient
--- NOTE | 2024-12-13 15:20 | SUR.PHASEII ---
1520 Dr. Aiken at bedside with patient
--- NOTE | 2024-12-13 16:25 | ESHP_ITS ---
<Statement entered by Jonnie Romano MD - 12/14/24 16:06> Senior Resident Attestation: I supervised/discussed management plan with internal medicine physician assistant physician Dr. Aiken, and was involved in the care of this patient. I personally saw and examined the patient and discussed the assessment and plan with the entire medicine team, including my attending. I agree with the assessment and plan as documented. Patient is a 44 years old male with PMH of HLD and anxiety presented for elective ORIF. Post operatively hospitalist team was consulted for admission for pain control and placement as patient does not have save place to go after discharge. Patient's care was discussed with attending physician, Dr. Soto. Jonnei Romano MD PGY-2. Documentation for date of: 12/13/24 HPI History of Present Illness History of present illness: The patient is a 44-year-old male with a past medical history of hyperlipidemia, anxiety and prediabetes who presented to [facility] for an elective ORIF on 12/13/2024. Apparently, on 12/07/2024 the patient has been rollerskating when he fell down, off of his skates injuring his right leg. He was brought to the ED at the time and x-ray of the right extremity showed angulated and commuted displaced fracture of the right distal tibia and fibula. The patient was splinted and asked to follow-up with orthopedic surgery Dr Rutledge. On 12/09/2024, he had his appointment with Dr. De Oliveira who scheduled him for an elective procedure to be done on 12/13/2024. Today, the patient came in for his surgery which is successful and he tolerated well. Internal medicine team was consulted to admit the patient for management of intractable pain and for direction of our social issues postop. Preop course: Prior to the procedure, labs were done which showed WBC 8.3 Hgb 14.6 PLT 393. Chemistry panel was unremarkable. A previous EKG was done which showed sinus rhythm with no arrhythmias. Postop, the patient received Flexeril, oxycodone IR and Tylenol for pain management. PMHx-as above PSHx-nail Social history-smokes 4 sticks of cigarettes a day for the last 20 years, drinks alcohol, no illicit drug use Home meds-atorvastatin, buspirone, trazodone, fluoxetine Review of Systems Review of Systems Narrative Review of Systems: GENERAL: Denies fevers/chills or diaphoresis. HEENT: Denies headache or visual/hearing changes. Denies nasal discharge. NEURO: Denies unusual weakness or difficulty speaking. CARDIO: Denies chest pain or palpitations. PULM: Denies SOB, coughing, or wheezing. GI: Denies abdominal pain, N/V/C/D/reflux/gas, bright red blood per rectum or melena. Reports having BMs. URO: Denies burning/itching/pain/urinary changes. MSK/EXT/SKIN: Admits minimal pain in the right lower extremity postop PSYCH: Cooperative, pleasant mood & affect. Exam Vital Signs Temp Pulse Resp BP Pulse Ox 97.9 F 92 20 138/87 H 95 12/13/24 13:30 12/13/24 13:15 12/13/24 13:30 12/13/24 13:30 12/13/24 13:30 Narrative Exam GENERAL: AAOX3 NEURO: CENTRAL SUPPLY NURSE grossly intact, moves extremities x4 HEENT: Moist mucosa. Eyes open, symmetrical, & clear CARDIO: No chest pain on palpation. Heart RRR, no obvious murmurs PULM: No noted coughing/dyspnea. Lungs CTA B/L GI: Abdomen soft, nondistended, no pain on palpation. BSx4 URO/BLOCK STACKER:: No further abnormalities noted. SKIN/MSK/EXT: Right lower extremity wrapped in clean and dry dressing. Large bruising over right arm, nontender however decreased range of motion. Results: Labs 12/14/24 04:56 12/14/24 04:56 Quality Measures Quality Measures none Medications Home Medications and Allergies Home Medications ?Medication ?Instructions ?Recorded ?Confirmed ?Type atorvastatin 40 mg tablet 40 mg PO DAILY 12/13/2411/30 History fenofibrate 54 mg tablet 54 mg PO DAILY 12/13/2411/30 History hydrocodone 5 mg-acetaminophen 325 1 tab PO Q4H PRN pa in 12/13/24 12/13/24 History mg tablet trazodone 50 mg tablet 50 mg PO .bedtime PRN insomn ia 12/13/24 12/13/24 History Allergies Allergy/AdvReac Type Severity Reaction Status Date / Time Penicillins Allergy Unknown Verified 12/13/24 07:56 Visit Medications Acetaminophen (Acetaminophen 325 Mg Tablet) 650 mg PO Q6H PRN PRN Reason: Pain 1-3 or Fever >100.3 Stop: 01/12/25 15:40 Hydrocodone Bitart/Acetaminophen (Hydrocodone/Apap 10/325 Tab) 1 tab PO Q4H PRN PRN Reason: PAIN SCALE 4-6 (Moderate Stop: 12/18/24 15:40 Atorvastatin Calcium (Atorvastatin Calcium 20 Mg Tablet) 40 mg PO DAILY [facility] Stop: 01/13/25 08:59 Buspirone HCl (Buspirone Hcl 5 Mg Tablet) 10 mg PO TID [facility] Stop: 01/12/25 21:59 Fluoxetine HCl (Fluoxetine Hcl 10 Mg Capsule) 40 mg PO QAM [facility] Stop: 01/13/25 08:59 Lactated Ringer's (Lactated Ringers) 1,000 mls @ 20 mls/hr IV .Q24H ONE Stop: 12/14/24 05:59 Last Admin: 12/13/24 08:27 Dose: 20 mls/hr Acetaminophen (Ofirmev Inj) 1,000 mg in 100 mls @ 250 mls/hr IV Q6HR [facility] Stop: 12/14/24 00:23 Last Infusion: 12/13/24 12:57 Dose: Infused Morphine Sulfate (Morphine Sulf Inj 10 Mg/Ml Vial) 1 mg IVP Q2H PRN PRN Reason: PAIN SCALE 7-10 (Severe Stop: 12/18/24 15:40 Ondansetron HCl (Ondansetron Inj 2 Mg/Ml Inj 2 Ml) 4 mg IV Q6H PRN; Protocol PRN Reason: NAUSEA OR VOMITING Stop: 01/12/25 15:40 Trazodone HCl (Trazodone Hcl 50 Mg Tablet) 50 mg PO HS PRN PRN Reason: INSOMNIA Stop: 01/12/25 15:44 Discontinued Medications Cyclobenzaprine HCl (Cyclobenzaprine 5 Mg Tablet) 10 mg PO X1 ONE Stop: 12/13/24 12:27 Last Admin: 12/13/24 12:40 Dose: 10 mg Fentanyl Citrate (Fentanyl Cit Inj 50 Mcg/Ml Amp 2ml) 25 mcg IV Q5M PRN PRN Reason: PAIN SCALE 1-3 (mild Stop: 12/13/24 13:54 Hydromorphone HCl (Hydromorphone Inj 2 Mg/Ml Vial) 0.4 mg IV Q5M PRN PRN Reason: PAIN SCALE 7-10 (Severe Stop: 12/13/24 13:54 Last Admin: 12/13/24 13:01 Dose: 0.4 mg Morphine Sulfate (Morphine Sulf Inj 10 Mg/Ml Vial) 3 mg IV Q5M PRN PRN Reason: PAIN SCALE 4-6 (Moderate Stop: 12/13/24 13:54 Ondansetron HCl (Ondansetron Inj 2 Mg/Ml Inj 2 Ml) 4 mg IV X1 ONE Stop: 12/13/24 11:55 Oxycodone HCl (Oxycodone Hcl 5 Mg Ir Tab) 10 mg PO X1 ONE Stop: 12/13/24 12:29 Last Admin: 12/13/24 12:45 Dose: 10 mg Assessment & Plan Assessment Summary: The patient is a 44-year-old male with a past medical history of hyperlipidemia, anxiety and prediabetes who presented to [facility] for an elective ORIF on 12/13/2024. #Acute tibial fracture #s/p ORIF of right tibia #s/p fall Apparently, on 12/07/2024 the patient has been rollerskating when he fell down, off of his skates injuring his right leg. He was brought to the ED at the time and x-ray of the right extremity showed angulated and commuted displaced fracture of the right distal tibia and fibula. The patient was splinted and asked to follow-up with orthopedic surgery Dr Rutledge. On 12/09/2024, he had his appointment with Dr. De Oliveira who scheduled him for an elective procedure to be done on 12/13/2024. Today, the patient came in for his surgery which is successful and he tolerated well. Per Dr. De Oliveira, dressing to be changed on Monday or Monday Plan: -Admit to [facility] -Optimize pain management -Ortho consulted, appreciate recommendations -Anticoagulation from tomorrow 12/14/2024 -Physical therapy #History of hyperlipidemia The patient was on atorvastatin 40 mg daily. Plan: -Resume home meds #History of anxiety Patient is on buspirone 10 mg 3 times daily and fluoxetine 40 mg daily Plan: -Resume home meds Health maintenance: Dispo: MedSurg Diet: Regular diet DVT: Aspirin (per ortho) Singh: None Lines: Peripheral PT: Ordered Code: Full Case was discussed with Dr Romano PGY-2 and attending physician, Dr Charles Aiken MD PGY-1 Disclaimer: This note was dictated by speech recognition. Minor errors in senior principal architect may be present due to voice recognition software.
--- NOTE | 2024-12-13 16:41 | XR_ITS ---
Examination: Shoulder,right, 3 views Technique: Shoulder AP internal rotation, AP external rotation, Y view shoulder, 3 views Exam date and time :December 13, 2024 at 1717 hrs. Indications: Patient fell No nasopharyngeal the shoulder, shoulder pain. Findings: No acute fracture No shoulder dislocation No significant separation Impression: No shoulder fracture or dislocation
--- NOTE | 2024-12-13 16:41 | XR_ITS ---
Examination: Humerus 2 views right Technique: Humerus, AP lateral 2 views Date and time of exam: December 13, 2024 1719 hrs. Indications: Patient fell couple days ago with injury to the right arm, right arm pain. Findings: No acute fracture No dislocation Impression: No acute fracture
--- NOTE | 2024-12-13 20:13 | ESPR_ITS ---
RE: ISIS HOFFMAN : 1980 DATE OF SERVICE: 12/13/2024 The patient underwent ORIF of the right distal tibia. In the recovery room, patient was in too much pain and has been kept in the hospital as observation. Pain medication will be given. The patient is going to be admitted under hospitalist because of the prediabetic and pain control scenario. I already explained to patient when I saw him on 12/09/2024 and again on 12/12/2024 that I will be going out of country and we have 2 orthopedic surgeons in town and if he needs some urgent attention, he can go to their office or he can go to the emergency room and patient is fully aware of that. Presently, patient is being kept in the hospital under hospitalist observation and pain control. The high school social studies teacher will also work on his homeless status and try to get some placement. DT: 12:51:11 TT: 20:10:00 Ref: [id number] - TID: [id number]
--- NOTE | 2024-12-13 20:41 | ESPR_ITS ---
RE: ISIS HOFFMAN : 1980 DATE OF SERVICE: 12/13/2024 The patient was seen by me again in the postop area. The patient is going to be under observation and spend night in the hospital. The patient was complaining of some discomfort in little toe. I used the splint. The patient had very good circulation. Capillary refill is good. The patient is able to move toes as well. The patient is able to feel the toes as well. The patient stated that his discomfort is gone. I also talked to the transition social worker, Hannah, about the patient's situation. The patient is homeless. I advised the transition social worker to talk to the insurance company, so that he can get some placement in the retirement. Since this Monday, there is a possibility that the insurance company may not respond on Monday. It seems that patient may have to stay here until Monday or Monday until the insurance companies figure out about his placement. I also talked to Dr. Soto, the hospitalist in charge about the situation. I also explained that I am leaving country on Monday evening or so. I will not be available. The covering doctor may be available. I do not anticipate any issues at all. Basically, it is outpatient surgery, but because of pain, he is being admitted. He does not have any neurovascular deficit or any issue at all at this point. In case some issue comes up, which is highly unlikely, they may contact Dr. Everett, the orthopedic surgeon or Dr. Lamar, orthopedic surgeon. I also advised Dr. Soto to take over the patient as I will be leaving out of country. DT: 14:58:23 TT: 20:40:00 Ref: [id number] - TID: [id number]
--- NOTE | 2024-12-13 21:03 | SUR.PHASEII ---
2054 Report given to Riley GRAF, patient meets discharge criteria from recovery, awake and alert, breathing unlabored, vital signs stable, dressing intact; no bleeding noted, patient has good circulation to right lower extremity; skin color is normal for patient, capillary refill is one second to right toes, and skin is warm to touch, denies nausea. 2102 Patient transported via bed to room 380 without incident.
[2024-12-13] MEDS: MORPHINE SULF INJ 10 MG/ML VIAL IVP (21:50)
[2024-12-13] MEDS: BusPIRone HCL 5 MG TABLET 10 MG PO (21:51)
[2024-12-13] MEDS: HYDROcodone/APAP 10/325 TAB PO (22:57)
[2024-12-14] VITALS: BP 127/92; PULSE 96; RESP 18; TEMP 36.6; O2SAT 95
[2024-12-14] MEDS: MORPHINE SULF INJ 10 MG/ML VIAL IVP (03:41)
[2024-12-14 04:00] VITALS: BP 141/88; PULSE 83; RESP 18; TEMP 36.4; O2SAT 97
[2024-12-14] MEDS: BusPIRone HCL 5 MG TABLET 10 MG PO ×2 (05:04→21:46)
[2024-12-14] MEDS: HYDROcodone/APAP 5/325 TABLET 1 TAB PO ×4 (05:04→21:46)
[2024-12-14 05:47] LABS: Basophils % (Auto) 0 % (0-2.5); Eosinophils % (Auto) 0 % (0-10); Hematocrit 39.1 % (41.0-53.0); Hemoglobin 13.6 g/dL (13.5-16.0); Immature Granulocytes % (Auto) 0 % (0-0); Immature Granulocytes Auto 0.06 Thou/mm3 (0.00-0.00); Lymphocytes # (Auto) 1.1 Thou/mm3 (1.0-4.8); Lymphocytes % (Auto) 7 % (10-50); Mean Corpuscular HGB Conc 34.8 g/dl (31.0-37.0); Mean Corpuscular Hemoglobin 31.1 pg (25.0-35.0); Mean Corpuscular Volume 90 fL (80-100); Monocytes # (Auto) 0.9 Thou/mm3 (0.0-0.8); Monocytes % (Auto) 6 % (0-12); Neutrophils # (Auto) 13.2 Thou/mm3 (1.8-7.7); Neutrophils % (Auto) 87 % (37-80); Nucleated Red Blood Cell % 0 /100 WBC (0); Platelet Count 372 Thou/mm3 (140-440); RDW Standard Deviation 39.6 fL (35.1-43.9); Red Blood Count 4.37 Miln/mm3 (4.50-5.90); White Blood Count 15.3 Thou/mm3 (3.8-10.6)
[2024-12-14 06:37] LABS: Alanine Aminotransferase 15 U/L (10-49); Albumin, Serum 3.8 gm/dL (3.5-5.0); Albumin/Globulin Ratio 1.5 (1.2-2.2); Alkaline Phosphatase 75 U/L (46-116); Anion Gap 9 (7-16); Aspartate Amino Transferase 16 U/L (0-34); BUN/Creatinine Ratio 19 Ratio (12-20); Bilirubin,Total 0.6 mg/dL (0.3-1.2); Blood Urea Nitrogen 15 mg/dL (9-23); Calcium 9.1 mg/dL (8.3-10.6); Calcium (Corrected) 9.3 mg/dL (8.5-10.1); Carbon Dioxide 26.3 mMol/L (20.0-31.0); Chloride 105 mMol/L (98-107); Creatinine (Component) 0.8 mg/dL (0.6-1.3); Estimated Creatinine Clearance 151.6 mL/min (>60); Globulin 2.6 gm/dL (2.3-3.5); Glucose 192 mg/dL (74-106); Osmolality,Calculated 285 (275-295); Phosphorous 3.3 mg/dL (2.4-5.1); Potassium 4.4 mMol/L (3.4-5.1); Sodium 140 mMol/L (136-145); Total Protein 6.4 gm/dL (5.7-8.2); eGFR > 60 See Note
[2024-12-14 08:00] VITALS: BP 128/81; PULSE 72; RESP 18; TEMP 36.8; O2SAT 98
[2024-12-14 08:40] LABS: Glucose Estimated Average 111 mg/dL (80-131); Hemoglobin A1C 5.5 % Hgb (4.8-6.0)
[2024-12-14] MEDS: FLUoxetine HCL 10 MG CAPSULE 40 MG PO (09:28)
[2024-12-14] MEDS: ASPIRIN EC 81 MG TABEC PO ×2 (09:28→21:46)
[2024-12-14] MEDS: ATORVASTATIN CALCIUM 20 MG TABLET 40 MG PO (09:29)
[2024-12-14] MEDS: NICOTINE PATCH 14 MG/24 HR PATCH.TD24 TOP (09:29)
[2024-12-14 12:00] VITALS: BP 137/88; PULSE 84; RESP 17; TEMP 36.6; O2SAT 97
--- NOTE | 2024-12-14 13:20 | ESPR_ITS ---
Documentation for date of: 12/14/24 Subjective Subjective Interval history: Patient seen at bedside. No acute overnight events. Today is day 1 postop of ORIF of right tibia. Patient is tolerating pain medication. PT evaluated patient today, will follow-up on recommendations. Otherwise, he is stable. Per Ortho recommendations, he will be started on aspirin 81 mg twice daily for DVT prophylaxis. Exam Vital Signs Temp Pulse Resp BP Pulse Ox O2 Del Method O2 Flow Rate 97.9 F 84 17 137/88 H 97 Room Air 2 12/14/24 12:00 12/14/24 12:12/14/24 12:12/14/24 12:12/14/24 12:12/14/24 12:12/13/24 20:15 Narrative Exam GENERAL: AAOX3 NEURO: ELECT EQUIP MAINT ENG grossly intact, moves extremities x4 HEENT: Moist mucosa. Eyes open, symmetrical, & clear CARDIO: No chest pain on palpation. Heart RRR, no obvious murmurs PULM: No noted coughing/dyspnea. Lungs CTA B/L GI: Abdomen soft, nondistended, no pain on palpation. BSx4 URO/CHIEF MAINTENANCE SUPERVISOR:: No further abnormalities noted. SKIN/MSK/EXT: Right lower extremity wrapped in clean and dry dressing. Large bruising over right arm, nontender however decreased range of motion. Objective Labs 12/15/24 05:33 12/15/24 05:33 Labs: Laboratory Results - last 24 hr 12/14/24 12/14/24 04:53 04:56 WBC 15.3 H D RBC 4.37 L Hgb 13.6 Hct 39.1 L MCV 90 MCH 31.1 MCHC 34.8 RDW Std Deviation 39.6 Plt Count 372 Neut % (Auto) 87 H Lymph % (Auto) 7 L [place] % (Auto) 6 Eos % (Auto) 0 Baso % (Auto) 0 Neut # (Auto) 13.2 H Lymph # (Auto) 1.1 [place] # (Auto) 0.9 H Eos # (Auto) 0.0 Baso # (Auto) 0.0 Immature Gran # (Auto) 0.06 H Absolute Nucleated RBC 0.00 Immature Gran % 0 Nucleated RBC % 0 Sodium 140 Potassium 4.4 D Chloride 105 Carbon Dioxide 26.3 Anion Gap 9 BUN 15 Creatinine 0.8 Estim Creat Clear Calc 151.6 eGFR > 60 BUN/Creatinine Ratio 19 [address]ucose [address] Glu mg/dL 111 Hemoglobin A1c 5.5 Calculated Osmolality 285 Calcium 9.1 Corrected Calcium 9.3 Phosphorus 3.3 Magnesium 2.0 Total Bilirubin 0.6 AST 16 ALT 15 Alkaline Phosphatase 75 Total Protein 6.4 Albumin 3.8 Globulin 2.6 Albumin/Globulin Ratio 1.5 Quality Measures Quality Measures none Assessment & Plan Assessment Current Active Medications: Generic Name Dose Route Start Last Admin Trade Name Freq PRN Reason Stop Dose Admin Acetaminophen 650 mg 12/14/24 09:33 Acetaminophen 325 Mg Tablet PO 01/12/25 15:40 Q6H PRN Pain 1-3 or Fever >100.1 Hydrocodone Bitart/Acetaminophen 1 tab 12/13/24 23:22 12/14/24 09:28 Hydrocodone/Apap 5/325 Tablet PO 12/18/24 21:34 1 tab Q4H PRN Administration mod Pain 4-6 Aspirin 81 mg 12/14/24 09:00 12/14/24 09:28 Aspirin Ec 81 Mg Tabec PO 01/13/25 08:59 81 mg BID [facility]IA Administration Atorvastatin Calcium 40 mg 12/14/24 09:00 12/14/24 09:29 Atorvastatin Calcium 20 Mg Tablet PO 01/13/25 08:59 40 mg DAILY [facility] Administration Buspirone HCl 10 mg 12/13/24 22:00 12/14/24 05:04 Buspirone Hcl 5 Mg Tablet PO 01/12/25 21:59 10 mg TID [facility] Administration Fluoxetine HCl 40 mg 12/14/24 09:00 12/14/24 09:28 Fluoxetine Hcl 10 Mg Capsule PO 01/13/25 08:59 40 mg QAM [facility] Administration Morphine Sulfate 1 mg 12/14/24 07:38 Morphine Sulf Inj 10 Mg/Ml Vial IVP 12/18/24 15:40 Q4HR PRN PAIN SCALE 7-10 (Severe Nicotine 14 mg 12/14/24 09:00 12/14/24 09:29 Nicotine Patch 14 Mg/24 Hr Patch.Td24 TOP 01/13/25 08:59 14 mg QDAY [facility] Administration Non-Formulary Medication 54 mg 12/14/24 09:00 12/14/24 09:29 Fenofibrate PO 01/13/25 08:59 Not Given DAILY [facility] Ondansetron HCl 4 mg 12/13/24 15:41 Ondansetron Inj 2 Mg/Ml Inj 2 Ml IV 01/12/25 15:40 Q6H PRN NAUSEA OR VOMITING Protocol Trazodone HCl 50 mg 12/13/24 15:45 Trazodone Hcl 50 Mg Tablet PO 01/12/25 15:44 HS PRN INSOMNIA Plan Summary: The patient is a 44-year-old male with a past medical history of hyperlipidemia, anxiety and prediabetes who presented to [facility] for an elective ORIF on 12/13/2024. #Acute tibial fracture #s/p ORIF of right tibia (Day 1 post op) #s/p fall Apparently, on 12/07/2024 the patient has been rollerskating when he fell down, off of his skates injuring his right leg. He was brought to the ED at the time and x-ray of the right extremity showed angulated and commuted displaced fracture of the right distal tibia and fibula. The patient was splinted and asked to follow-up with orthopedic surgery Dr Rutledge. On 12/09/2024, he had his appointment with Dr. De Oliveira who scheduled him for an elective procedure to be done on 12/13/2024. Today, the patient came in for his surgery which is successful and he tolerated well. Per Dr. De Oliveira, dressing to be changed on Monday or Monday Plan: -Optimize pain management -Ortho consulted, appreciate recommendations -Aspirin 81mg BID for DVT prophylaxis (per ortho recs) -Physical therapy #History of hyperlipidemia The patient was on atorvastatin 40 mg daily. Plan: -Resume home meds #History of anxiety Patient is on buspirone 10 mg 3 times daily and fluoxetine 40 mg daily Plan: -Resume home meds Health maintenance: Dispo: MedSurg Diet: Regular diet DVT: Aspirin (per ortho) Singh: None Lines: Peripheral PT: Ordered Code: Full Case was discussed with attending physician, Dr Charles Aiken MD PGY-1 Disclaimer: This note was dictated by speech recognition. Minor errors in supervisor boat outfitting may be present due to voice recognition software.
[2024-12-14 16:00] VITALS: BP 141/82; PULSE 90; RESP 18; TEMP 37.1; O2SAT 97
[2024-12-14] MEDS: ACETAMINOPHEN 325 MG TABLET 650 MG PO (19:01)
[2024-12-14 20:00] VITALS: BP 142/89; PULSE 94; RESP 18; TEMP 36.2; O2SAT 93
[2024-12-15] VITALS: BP 149/94; PULSE 71; RESP 18; TEMP 36.1; O2SAT 98
[2024-12-15] MEDS: HYDROcodone/APAP 5/325 TABLET 1 TAB PO ×2 (01:38→18:13)
[2024-12-15 04:00] VITALS: BP 150/100; PULSE 75; RESP 18; TEMP 36.1; O2SAT 99
[2024-12-15] MEDS: ACETAMINOPHEN 325 MG TABLET 650 MG PO (05:18)
[2024-12-15] MEDS: BusPIRone HCL 5 MG TABLET 10 MG PO ×3 (05:19→21:19)
[2024-12-15 06:05] LABS: Basophils # (Auto) 0.1 Thou/mm3 (0.0-0.2); Basophils % (Auto) 1 % (0-2.5); Eosinophils # (Auto) 0.1 Thou/mm3 (0.0-0.5); Eosinophils % (Auto) 1 % (0-10); Hematocrit 42.9 % (41.0-53.0); Hemoglobin 14.7 g/dL (13.5-16.0); Immature Granulocytes % (Auto) 0 % (0-0); Immature Granulocytes Auto 0.02 Thou/mm3 (0.00-0.00); Lymphocytes # (Auto) 2.5 Thou/mm3 (1.0-4.8); Lymphocytes % (Auto) 31 % (10-50); Mean Corpuscular HGB Conc 34.3 g/dl (31.0-37.0); Mean Corpuscular Hemoglobin 30.9 pg (25.0-35.0); Mean Corpuscular Volume 90 fL (80-100); Monocytes # (Auto) 0.7 Thou/mm3 (0.0-0.8); Monocytes % (Auto) 9 % (0-12); Neutrophils # (Auto) 4.5 Thou/mm3 (1.8-7.7); Neutrophils % (Auto) 58 % (37-80); Nucleated Red Blood Cell % 0 /100 WBC (0); Platelet Count 339 Thou/mm3 (140-440); RDW Standard Deviation 40.1 fL (35.1-43.9); Red Blood Count 4.75 Miln/mm3 (4.50-5.90); White Blood Count 7.8 Thou/mm3 (3.8-10.6)
[2024-12-15 06:34] LABS: Alanine Aminotransferase 17 U/L (10-49); Albumin, Serum 3.7 gm/dL (3.5-5.0); Albumin/Globulin Ratio 1.4 (1.2-2.2); Alkaline Phosphatase 77 U/L (46-116); Anion Gap 5 (7-16); Aspartate Amino Transferase 19 U/L (0-34); BUN/Creatinine Ratio 19 Ratio (12-20); Bilirubin,Total 0.5 mg/dL (0.3-1.2); Blood Urea Nitrogen 13 mg/dL (9-23); Calcium 8.9 mg/dL (8.3-10.6); Calcium (Corrected) 9.1 mg/dL (8.5-10.1); Chloride 106 mMol/L (98-107); Creatinine (Component) 0.7 mg/dL (0.6-1.3); Estimated Creatinine Clearance 173.3 mL/min (>60); Globulin 2.6 gm/dL (2.3-3.5); Glucose 96 mg/dL (74-106); Magnesium 1.8 mg/dL (1.6-2.6); Osmolality,Calculated 285 (275-295); Potassium 4.2 mMol/L (3.4-5.1); Sodium 143 mMol/L (136-145); Total Protein 6.3 gm/dL (5.7-8.2); eGFR > 60 See Note
[2024-12-15 08:00] VITALS: BP 134/90; PULSE 69; RESP 17; TEMP 37.1; O2SAT 99
[2024-12-15] MEDS: FLUoxetine HCL 10 MG CAPSULE 40 MG PO (09:07)
[2024-12-15] MEDS: ASPIRIN EC 81 MG TABEC PO ×2 (09:08→21:19)
[2024-12-15] MEDS: ATORVASTATIN CALCIUM 20 MG TABLET 40 MG PO (09:08)
[2024-12-15] MEDS: NICOTINE PATCH 14 MG/24 HR PATCH.TD24 TOP (09:08)
[2024-12-15] MEDS: POLYETHYLENE GLYCOL 17 GM PACKET PO (09:09)
[2024-12-15] MEDS: MORPHINE SULF INJ 10 MG/ML VIAL 2 MG IVP ×2 (09:11→15:53)
[2024-12-15 11:49] VITALS: BP 150/93; PULSE 62
[2024-12-15] MEDS: LOSARTAN POTASSIUM 25 MG TABLET PO (11:49)
[2024-12-15 12:00] VITALS: BP 150/93; PULSE 62; RESP 17; TEMP 36.3; O2SAT 94
--- NOTE | 2024-12-15 13:10 | ESPR_ITS ---
Documentation for date of: 12/15/24 Subjective Subjective Interval history: Patient seen at bedside. No overnight events. Patient reports that he is a little sore at the op site, otherwise stable. Blood pressure elevated at 150/100, will start patient on losartan 25 mg daily. Pending SNF. Placement Exam Vital Signs Temp Pulse Resp BP Pulse Ox O2 Del Method O2 Flow Rate 97.3 F 62 17 150/93 H 94 L Room Air 2 12/15/24 12:00 12/15/24 12:00 12/15/24 12:00 12/15/24 12:00 12/15/24 12:00 12/15/24 12:00 12/15/24 08:00 Narrative Exam GENERAL: AAOX3 NEURO: CAB DRIVER grossly intact, moves extremities x4 HEENT: Moist mucosa. Eyes open, symmetrical, & clear CARDIO: No chest pain on palpation. Heart RRR, no obvious murmurs PULM: No noted coughing/dyspnea. Lungs CTA B/L GI: Abdomen soft, nondistended, no pain on palpation. BSx4 URO/BOBBIN CLEANING MACHINE OPERATOR:: No further abnormalities noted. SKIN/MSK/EXT: Right lower extremity wrapped in clean and dry dressing. Large bruising over right arm, nontender however decreased range of motion. Objective Labs 12/15/24 05:33 12/15/24 05:33 Labs: Laboratory Results - last 24 hr 12/15/24 05:33 WBC 7.8 D RBC 4.75 Hgb 14.7 Hct 42.9 MCV 90 MCH 30.9 MCHC 34.3 RDW Std Deviation 40.1 Plt Count 339 D Neut % (Auto) 58 Lymph % (Auto) 31 [place] % (Auto) 9 Eos % (Auto) 1 Baso % (Auto) 1 Neut # (Auto) 4.5 Lymph # (Auto) 2.5 [place] # (Auto) 0.7 Eos # (Auto) 0.1 Baso # (Auto) 0.1 Immature Gran # (Auto) 0.02 H Absolute Nucleated RBC 0.00 Immature Gran % 0 Nucleated RBC % 0 Sodium 143 Potassium 4.2 Chloride 106 Carbon Dioxide 32.0 H Anion Gap 5 L BUN 13 Creatinine 0.7 Estim Creat Clear Calc 173.3 eGFR > 60 BUN/Creatinine Ratio 19 Glucose 96 D Calculated Osmolality 285 Calcium 8.9 Corrected Calcium 9.1 Phosphorus 3.0 Magnesium 1.8 Total Bilirubin 0.5 AST 19 ALT 17 Alkaline Phosphatase 77 Total Protein 6.3 Albumin 3.7 Globulin 2.6 Albumin/Globulin Ratio 1.4 Quality Measures Quality Measures none Assessment & Plan Assessment Current Active Medications: Generic Name Dose Route Start Last Admin Trade Name Freq PRN Reason Stop Dose Admin Acetaminophen 650 mg 12/14/24 09:33 12/15/24 05:18 Acetaminophen 325 Mg Tablet PO 01/12/25 15:40 650 mg Q6H PRN Administration Pain 1-3 or Fever >100.1 Hydrocodone Bitart/Acetaminophen 1 tab 12/13/24 23:22 12/15/24 01:38 Hydrocodone/Apap 5/325 Tablet PO 12/18/24 21:34 1 tab Q4H PRN Administration mod Pain 4-6 Aspirin 81 mg 12/14/24 09:00 12/15/24 09:08 Aspirin Ec 81 Mg Tabec PO 01/13/25 08:59 81 mg BID [facility]IA Administration Atorvastatin Calcium 40 mg 12/14/24 09:00 12/15/24 09:08 Atorvastatin Calcium 20 Mg Tablet PO 01/13/25 08:59 40 mg DAILY [facility] Administration Buspirone HCl 10 mg 12/13/24 22:00 12/15/24 05:19 Buspirone Hcl 5 Mg Tablet PO 01/12/25 21:59 10 mg TID [facility] Administration Fluoxetine HCl 40 mg 12/14/24 09:00 12/15/24 09:07 Fluoxetine Hcl 10 Mg Capsule PO 01/13/25 08:59 40 mg QAM [facility] Administration Losartan Potassium 25 mg 12/15/24 11:30 12/15/24 11:49 Losartan Potassium 25 Mg Tablet PO 01/14/25 11:29 25 mg QDAY [facility] Administration Morphine Sulfate 2 mg 12/15/24 07:50 12/15/24 09:11 Morphine Sulf Inj 10 Mg/Ml Vial IVP 12/18/24 15:40 2 mg Q4HR PRN Administration PAIN SCALE 7-10 (Severe Nicotine 14 mg 12/14/24 09:00 12/15/24 09:08 Nicotine Patch 14 Mg/24 Hr Patch.Td24 TOP 01/13/25 08:59 14 mg QDAY [facility] Administration Non-Formulary Medication 54 mg 12/14/24 09:00 12/15/24 09:08 Fenofibrate PO 01/13/25 08:59 Not Given DAILY [facility] Ondansetron HCl 4 mg 12/13/24 15:41 Ondansetron Inj 2 Mg/Ml Inj 2 Ml IV 01/12/25 15:40 Q6H PRN NAUSEA OR VOMITING Protocol Polyethylene Glycol 17 gm 12/15/24 09:00 12/15/24 09:09 Polyethylene Glycol 17 Gm Packet PO 01/14/25 08:59 17 gm QDAY [facility] Administration Trazodone HCl 50 mg 12/13/24 15:45 Trazodone Hcl 50 Mg Tablet PO 01/12/25 15:44 HS PRN INSOMNIA Plan Summary: The patient is a 44-year-old male with a past medical history of hyperlipidemia, anxiety and prediabetes who presented to [facility] for an elective ORIF on 12/13/2024. #Acute tibial fracture #s/p ORIF of right tibia (Day 2 post op) #s/p fall Apparently, on 12/07/2024 the patient has been rollerskating when he fell down, off of his skates injuring his right leg. He was brought to the ED at the time and x-ray of the right extremity showed angulated and commuted displaced fracture of the right distal tibia and fibula. The patient was splinted and asked to follow-up with orthopedic surgery Dr Rutledge. On 12/09/2024, he had his appointment with Dr. De Oliveira who scheduled him for an elective procedure to be done on 12/13/2024. Today, the patient came in for his surgery which is successful and he tolerated well. Per Dr. De Oliveira, dressing to be changed on Monday or Monday Plan: -Optimize pain management -Ortho consulted, appreciate recommendations -Aspirin 81mg BID for DVT prophylaxis (per ortho recs) -Physical therapy #History of hypertension The patient has previously been diagnosed with hypertension, but was never taking medications. BP has remained elevated. Plan: -Losartan 25mg daily #History of hyperlipidemia The patient was on atorvastatin 40 mg daily. Plan: -Resume home meds #History of anxiety Patient is on buspirone 10 mg 3 times daily and fluoxetine 40 mg daily` Plan: -Resume home meds Health maintenance: Dispo: MedSurg Diet: Regular diet DVT: Aspirin (per ortho) Singh: None Lines: Peripheral PT: Ordered Code: Full Case was discussed with Dr Cedillo PGY-2 and attending physician, Dr Charles Aiken MD PGY-1 Disclaimer: This note was dictated by speech recognition. Minor errors in photographer motion picture may be present due to voice recognition software. LPatient is a 44 year old male admitted for RT tibial fracture s/p ORIF day 2. Patient is improving, pain is well controlled with norco and iv morphine. As per ortho recommendations, cast to stay on, patient is ok to be discharged to acute rehab facility. Low dose Losartan started for BP control, patient is a newly diagnosed hypertensive, will continue on DC. Dispo: Pending authorization for acute rehab, anticipate discharge in 24-48 hours. Patient examined and case discussed with the team including attending physician. Note reviewed, I agree with the care plan as documented. - Gonzalo Cedillo MD, PGY 2 L
--- NOTE | 2024-12-15 18:02 | PC.SS ---
Georges Chin is 44 year old male admitted to [facility] for orif lt tibula. SS conducted bedside contact with the patient to complete initial assessment and to discuss discharge planning.? SW used all precautionary measures to complete initial. Role and reason for the contact was explained to Georges. Pt is alert and oriented times 4. Patient confirmed demographic information confirming address correct on facesheet and uses it for mailing purposes. Pt is homeless and resides at various shelters. Patient identifies Erika Jared, friend, as His surrogate decision maker. Pt states prior to hospitalization he is able to complete ADL?s independently. Pt does not use DME; nor O2. Pt confirmed no history of mental health dx severe depression; hx of substance abuse is 40 oz alcohol a week and marijuana from time to time. Pts PCP is Santosh Pearson. Pharmacy of choice is unknown. Discharge options discussed, pt would like to go to SNF. Transportation will need to be provided. No further intervention required at this time, social work msw would be available to address any further concerns. DC Plan: SNF Contact: Erika Jared, friend, Address: Confirmed on face sheet PCP: Shelby Pearson
--- NOTE | 2024-12-15 18:04 | PC.SS ---
SS completed PASRR; level 2 SS submitted paperwork via [facility] for possible placement
--- NOTE | 2024-12-15 18:06 | PC.SS ---
SS confirmed with pt able to speak with mother, Jennie, ; SS did not provide any information at time of call as Jennie wanted to find out about process of SNF placement
[2024-12-15 20:00] VITALS: BP 117/79; PULSE 76; RESP 18; TEMP 36.2; O2SAT 98
[2024-12-16] VITALS (7 sets, daily range): BP systolic 112–142; BP diastolic 80–91; PULSE 63–87; RESP 18–20; TEMP 36.1–36.2; O2SAT 95–100; BMI 14.0
[2024-12-16] MEDS: HYDROcodone/APAP 5/325 TABLET 1 TAB PO ×2 (02:29→21:41)
[2024-12-16] MEDS: BusPIRone HCL 5 MG TABLET 10 MG PO ×3 (05:37→21:36)
[2024-12-16 06:27] LABS: Cardiac Risk Estimate 4.6 RATIO (4.0-6.7); Cholesterol 143 mg/dL (132-200); HDL Cholesterol 31 mg/dL (40-60); LDL Cholesterol,Calculated 45 mg/dL (0-130); Triglycerides 337 mg/dL (30-150)
[2024-12-16] MEDS: FLUoxetine HCL 10 MG CAPSULE 40 MG PO (08:48)
[2024-12-16] MEDS: POLYETHYLENE GLYCOL 17 GM PACKET PO (08:48)
[2024-12-16] MEDS: LOSARTAN POTASSIUM 25 MG TABLET PO (08:49)
[2024-12-16] MEDS: NICOTINE PATCH 14 MG/24 HR PATCH.TD24 TOP (08:49)
[2024-12-16] MEDS: ASPIRIN EC 81 MG TABEC PO ×2 (08:49→21:36)
[2024-12-16] MEDS: ATORVASTATIN CALCIUM 20 MG TABLET 40 MG PO (08:49)
--- NOTE | 2024-12-16 10:00 | PC.SS ---
SS spoke to [facility] Rosibel [phone] to obtain clearance on level 2 evaluation. Per Rosibel, TONIA to clear by 1020, 12/16/24.
--- NOTE | 2024-12-16 11:50 | PC.SS ---
SS spoke with Nadira, [facility], confimred auth needed before can accept pt; Nadira asked for updated 72 hour list; this was uploaded and sent via [employer] PASSR completed and uploaded; PASRR uploaded on [employer] and PASRR sent over to [facility] and [facility]; currently the 2 facilities that have said yes pending auth
--- NOTE | 2024-12-16 13:35 | PD.RESPRO ---
Documentation for date of: 12/16/24 Subjective Subjective Interval history: Patient was seen and examined at bedside. No acute overnight events. Patient reports no complaints other than periodic right lower extremity pain which improved after pain medications. Pending authorization for placement. Will continue current management and monitor patient. Exam Vital Signs Temp Pulse Resp BP Pulse Ox O2 Del Method O2 Flow Rate 97.0 F 69 20 137/91 H 100 Room Air 2 12/16/24 12:00 12/16/24 12:00 12/16/24 12:12/16/24 12:12/16/24 12:12/16/24 12:12/15/24 08:00 Narrative Exam Gen: Well-developed and well-nourished. HEENT: NCAT, PERRLA, EOMI, MMM, anicteric conjunctivae. CVS: normal S1 and S2. RRR. No M/R/G. Resp: CTA B/L. No rhonchi, rales, crackles or wheezing. Abd: soft, non-tender, non-distended. BS+ in all 4 quadrants. MSK: No edema or rash. Right thigh wrapped in dressing and cast. Neuro: CN II-XII grossly intact. Strength 5/5 in BUE & LLE. Alert and oriented x3. Psych: appropriate mood and affect. Objective Labs 12/15/24 05:33 12/15/24 05:33 Labs: Laboratory Results - last 24 hr 12/16/24 05:06 Triglycerides 337 H Cholesterol 143 LDL Cholesterol, Calc 45 HDL Cholesterol 31 L Cholesterol/HDL Ratio 4.6 Quality Measures Quality Measures VTE prophylaxis Assessment & Plan Assessment Current Active Medications: Generic Name Dose Route Start Last Admin Trade Name Freq PRN Reason Stop Dose Admin Acetaminophen 650 mg 12/14/24 09:33 12/15/24 05:18 Acetaminophen 325 Mg Tablet PO 01/12/25 15:40 650 mg Q6H PRN Administration Pain 1-3 or Fever >100.1 Hydrocodone Bitart/Acetaminophen 1 tab 12/13/24 23:22 12/16/24 02:29 Hydrocodone/Apap 5/325 Tablet PO 12/18/24 21:34 1 tab Q4H PRN Administration mod Pain 4-6 Aspirin 81 mg 12/14/24 09:00 12/16/24 08:49 Aspirin Ec 81 Mg Tabec PO 01/13/25 08:59 81 mg BID BASIA Administration Atorvastatin Calcium 40 mg 12/14/24 09:00 12/16/24 08:49 Atorvastatin Calcium 20 Mg Tablet PO 01/13/25 08:59 40 mg DAILY BASIA Administration Buspirone HCl 10 mg 12/13/24 22:00 12/16/24 05:37 Buspirone Hcl 5 Mg Tablet PO 01/12/25 21:59 10 mg TID BASIA Administration Fluoxetine HCl 40 mg 12/14/24 09:00 12/16/24 08:48 Fluoxetine Hcl 10 Mg Capsule PO 01/13/25 08:59 40 mg QAM BASIA Administration Losartan Potassium 25 mg 12/15/24 11:30 12/16/24 08:49 Losartan Potassium 25 Mg Tablet PO 01/14/25 11:29 25 mg QDAY BASIA Administration Morphine Sulfate 2 mg 12/15/24 07:50 12/15/24 15:53 Morphine Sulf Inj 10 Mg/Ml Vial IVP 12/18/24 15:40 2 mg Q4HR PRN Administration PAIN SCALE 7-10 (Severe Nicotine 14 mg 12/14/24 09:00 12/16/24 08:49 Nicotine Patch 14 Mg/24 Hr Patch.Td24 TOP 01/13/25 08:59 14 mg QDAY BASIA Administration Non-Formulary Medication 54 mg 12/14/24 09:00 12/15/24 09:08 Fenofibrate PO 01/13/25 08:59 Not Given DAILY BASIA Ondansetron HCl 4 mg 12/13/24 15:41 Ondansetron Inj 2 Mg/Ml Inj 2 Ml IV 01/12/25 15:40 Q6H PRN NAUSEA OR VOMITING Protocol Polyethylene Glycol 17 gm 12/15/24 09:00 12/16/24 08:48 Polyethylene Glycol 17 Gm Packet PO 01/14/25 08:59 17 gm QDAY BASIA Administration Trazodone HCl 50 mg 12/13/24 15:45 Trazodone Hcl 50 Mg Tablet PO 01/12/25 15:44 HS PRN INSOMNIA Plan Summary: The patient is a 44-year-old male with a past medical history of hyperlipidemia, anxiety and prediabetes who presented to [facility] for an elective ORIF on 12/13/2024. #Acute tibial fracture. #s/p ORIF of right tibia (Day 3 post op). #s/p fall. Apparently, on 12/07/2024 the patient has been rollerskating when he fell down, off of his skates injuring his right leg. He was brought to the ED at the time and x-ray of the right extremity showed angulated and commuted displaced fracture of the right distal tibia and fibula. The patient was splinted and asked to follow-up with orthopedic surgery Dr Rutledge. On 12/09/2024, he had his appointment with Dr. De Oliveira who scheduled him for an elective procedure to be done on 12/13/2024. Today, the patient came in for his surgery which is successful and he tolerated well. Per Dr. De Oliveira, dressing to be changed on Monday or Monday Plan: -Optimize pain management. -Ortho consulted, appreciate recommendations. -Aspirin 81mg BID for DVT prophylaxis (per ortho recs). -Physical therapy. #History of hypertension. The patient has previously been diagnosed with hypertension, but was never taking medications. BP has remained elevated. Plan: -Losartan 25mg daily. #History of hyperlipidemia. The patient was on atorvastatin 40 mg daily. Plan: -Resume home meds. #History of anxiety. Patient is on buspirone 10 mg 3 times daily and fluoxetine 40 mg daily Plan: -Resume home meds. Health maintenance: Dispo: MedSurg Diet: Regular diet DVT: Aspirin (per ortho) Singh: None Lines: Peripheral PT: Ordered Code: Full Plan of care discussed with attending Dr. Soto. Jonnie Romano MD, PGY 2. Disclaimer: This note was dictated by speech recognition. Minor errors in professor of criminal justice may be present due to voice recognition software.
[2024-12-16] MEDS: FENOFIBRATE 145 MG TABLET (NON-FORMULARY) PO (18:38)
[2024-12-17] VITALS: BP 140/92; PULSE 83; RESP 18; TEMP 36.1; O2SAT 96
[2024-12-17 04:00] VITALS: BP 111/85; PULSE 87; RESP 18; TEMP 36.1; O2SAT 97
[2024-12-17] MEDS: BusPIRone HCL 5 MG TABLET 10 MG PO ×2 (05:09→14:10)
[2024-12-17] MEDS: HYDROcodone/APAP 5/325 TABLET 1 TAB PO ×2 (05:11→09:20)
[2024-12-17 08:00] VITALS: BP 130/88; PULSE 81; RESP 20; TEMP 36.1; O2SAT 99
[2024-12-17 09:12] VITALS: BP 130/88; PULSE 81
[2024-12-17] MEDS: LOSARTAN POTASSIUM 25 MG TABLET PO (09:12)
[2024-12-17] MEDS: ASPIRIN EC 81 MG TABEC PO (09:12)
[2024-12-17] MEDS: FENOFIBRATE 145 MG TABLET (NON-FORMULARY) PO (09:12)
[2024-12-17] MEDS: FLUoxetine HCL 10 MG CAPSULE 40 MG PO (09:12)
[2024-12-17] MEDS: NICOTINE PATCH 14 MG/24 HR PATCH.TD24 TOP (09:13)
--- NOTE | 2024-12-17 10:49 | CHAP ---
Patient was visited by a Spiritual Care Volunteer on 12/17/2024 between 0900 and 1000 and received comfort, encouragement and/or prayer.
--- NOTE | 2024-12-17 10:59 | PC.SS ---
Follow up note: Patient has d/c orders for today. Patient will discharge [facility]. Facility states they have authorization. Patient can d/c via private vehicle or medi van. Ready at 3p.m.
--- NOTE | 2024-12-17 11:32 | PC.SS ---
SS received call from patient's mother, Jennie Chin at [phone]. She lives in [place], [place] and she wanted to make sure patient was going to SNF today. Patient's mother explained that patient has a mental illness and has been homeless for some time. She states she will be available as an emergency contact.
[2024-12-17 12:00] VITALS: BP 133/87; PULSE 80; RESP 20; TEMP 36.1; O2SAT 97
--- NOTE | 2024-12-17 12:41 | ESDS_ITS ---
Planned Discharge Date 12/17/24 DS: Providers Provider Date of admission: 12/13/24 15:40 Primary care physician: Santosh Pearson MD Admitting Provider: Brant Rutledge MD Attending Provider on Admission: Brant Rutledge MD Consults: 12/13/24 12:23 Consult to Adult Hospitalist Urgent Comment: post op healthcare consultant for care Consulting Provider: Debbie Anderson 12/13/24 12:26 Consult to Adult Hospitalist Urgent Comment: Consulting Provider: Debbie Anderson 12/13/24 16:30 Referral Physical Therapy Routine Comment: Physician Instructions: 12/13/24 23:12 [facility] Referral - Safety Routine Comment: Positive screening for safety needs. [facility] Referral - Transportation Routine Comment: Positive screening for transportation needs. Attending Provider on DC: Jonnie Romano MD Discharging Provider: Jonnie Romano MD DS: Diagnosis Problem List Completed Was Problem List Reviewed/Reconciled?: Yes Hospital Course Hospital Course Hospital course: The patient is a 44 years old male with a past medical history of hyperlipidemia, anxiety and prediabetes who presented to [facility] for an elective ORIF on 12/13/[address] Rutledge. Internal medicine team was consulted to admit the patient for management of intractable pain and for placement as patient does not have safe place to go after. Today patient is stable to be discharged to SNF. Stop taking atorvastatin. Start taking fenofibrate 108 mg daily. Take aspirin 81 mg daily until seen by orthopedic surgery. Use [place] as needed 1 tab every 4 hours. Continue home medications as prescribed. Follow up with PCP and orthopedic consult within 2 weeks. #Acute tibial fracture. #s/p ORIF of right tibia (Day 4 post op). #s/p fall. #History of hypertension. #History of hyperlipidemia. #History of anxiety. Plan of care discussed with attending Dr. Tapia. Jonnie Romano MD, PGY 2. Disclaimer: This note was dictated by speech recognition. Minor errors in blindstitch lapel padder may be present due to voice recognition software. Time Spent with Patient Time attestation: Total time spent providing and/or coordinating discharge services: 40 min Quality: VTE Deep Vein Thrombosis/Pulmonary Embolism Present on Admission: No Exam Vital Signs Temp Pulse Resp BP Pulse Ox O2 Del Method O2 Flow Rate 97.0 F 81 20 130/88 H 99 Room Air 2 12/17/24 08:00 12/17/24 09:12 12/17/24 08:00 12/17/24 09:12 12/17/24 08:00 12/17/24 08:00 12/15/24 08:00 Narrative Exam Gen: Well-developed and well-nourished. HEENT: NCAT, PERRLA, EOMI, MMM, anicteric conjunctivae. CVS: normal S1 and S2. RRR. No M/R/G. Resp: CTA B/L. No rhonchi, rales, crackles or wheezing. Abd: soft, non-tender, non-distended. BS+ in all 4 quadrants. MSK: No edema or rash. Right thigh wrapped in dressing and cast. Neuro: CN II-XII grossly intact. Strength 5/5 in BUE & LLE. Alert and oriented x3. Psych: appropriate mood and affect. Discharge Plan Plan Patient Disposition: Xfer Skilled Nsg Fac (SNF) Care Plan Goals: Stop taking atorvastatin. Start taking fenofibrate 108 mg daily. Take aspirin 81 mg daily until seen by orthopedic surgery. Use [place] as needed 1 tab every 4 hours. Continue home medications as prescribed. Follow up with PCP and orthopedic consult within 2 weeks. Prescriptions/Referrals Prescriptions/Med Rec: New losartan 25 mg Tablet 25 mg PO QDAY Qty: 30 0RF aspirin 81 mg tablet,delayed release (DR/EC) 81 mg PO QDAY Qty: 30 0RF Continued fluoxetine 40 mg capsule 40 mg PO QAM Qty: 30 1RF buspirone 10 mg tablet 10 mg PO TID Qty: 90 3RF ibuprofen 800 mg tablet 800 mg PO TID PRN (Reason: pain) Qty: 30 0RF hydrocodone-acetaminophen 5-325 mg tablet 1 tab PO Q4H PRN (Reason: pain) trazodone 50 mg tablet 50 mg PO .bedtime PRN (Reason: insomnia) Changed fenofibrate 54 mg tablet 108 mg PO DAILY Qty: 60 0RF Patient Comments: TAKE 1 TABLET BY MOUTH EVERY DAY WITH FOOD FOR 30 DAYS Discontinued atorvastatin 40 mg tablet 40 mg PO DAILY Patient Comments: TAKE 1 TABLET BY MOUTH EVERY DAY Referrals: Santosh Pearson MD [Primary Care Provider] - Patient/Caregiver Discharge Instructions Print Language: Estonian Stand Alone Forms: Carmela Award Info., Patient Portal Info Letter Discharge Order Discharge Orders: Discharge (Routine); Ordered 12/16/24 Ordered By: Gonzalo Cedillo Quality Discharge Quality Measures VTE prophylaxis MD Attestestation MD Attestation I have examined the patient, reviewed labs and imaging findings, discussed the case with the resident(s), and reviewed entered orders. I agree with the plan of care as outlined in this note. Dr. Tapia
--- NOTE | 2024-12-17 14:11 | PC.PT ---
Patient is clear to ambulate to the bathroom and in the chu using his crutches and 1 staff assist for safety. RN made aware.
== END 2024-12-17 15:30 | disposition skilled nursing facility (03) | DRG 313 ==
LOC: S2EX 12-17 07:46 → S3SX 12-17 08:20 → S2EX 12-17 08:21 → S3SX 12-17 08:21 → S3EX 12-17 08:21 → S3SX 12-17 08:22
PROVIDERS: Anesthesiology; Admitting Provider Orthopaedic Surgery; PCP Family Medicine; Referring Provider Orthopaedic Surgery; Visit Provider Orthopaedic Surgery
PROC: 0QSG04Z Reposition Right Tibia with Internal Fixation Device, Open Approach (ICD-10-PCS; principal; 2024-12-13 09:45)
DX: S82.301A Unspecified fracture of lower end of right tibia, initial encounter for closed fracture (principal); S82.831A Other fracture of upper and lower end of right fibula, initial encounter for closed fracture; R73.03 Prediabetes; F17.210 Nicotine dependence, cigarettes, uncomplicated; Z59.00 Homelessness unspecified; E78.5 Hyperlipidemia, unspecified; F41.9 Anxiety disorder, unspecified; V00.121A Fall from non-in-line roller-skates, initial encounter; Y93.51 Activity, roller skating (inline) and skateboarding; I10 Essential (primary) hypertension
CPT/HCPCS: 36415; 73030; 73060; 76000; 80053; 80061; 83036; 83735; 84100; 85025; 85610; 85730; 93005; 97162; A4217; A4649; C1713; C1768; J0131; J0690; J1100; J1580; J1885; J2250; J2270; J2405; J2704; J2795; J3010; J3490; J7120; A9270; J0665